=== PATIENT | male | born 1965 | race Caucasian/White ===

== ENCOUNTER 2016-12-22 15:14 | Emergency (ER) | payer MEDICAID, OTHER ==
[~2016-12-22] VITALS: Ht 170.2 cm; Wt 81.6 kg
[2016-12-22 15:30] VITALS: BP 126/87
== END 2016-12-22 17:16 | disposition left against medical advice (07) ==
LOC: ER 15:17
DX: M79.645 Pain in left finger(s) (principal); Z53.21 Procedure and treatment not carried out due to patient leaving prior to being seen by health care provider

== ENCOUNTER 2019-08-06 14:48 | Emergency (ER) | payer MEDICAID ==
[~2019-08-06] VITALS: Ht 170.2 cm; Wt 81.6 kg
[2019-08-06 19:29] VITALS: BP 128/95
[2019-08-06] MEDS ORDERED: IBUPROFEN 800 MG TAB PO ONE (20:00)
== END 2019-08-06 20:18 | disposition home or self-care (01) ==
LOC: ER 14:48
DX: L03.112 Cellulitis of left axilla (principal); R21 Rash and other nonspecific skin eruption

== ENCOUNTER 2020-11-18 10:12 | Inpatient (IN) | payer MEDICAID ==
[~2020-11-18] VITALS: Ht 170.2 cm; Wt 92.9 kg
[2020-11-18] MEDS ORDERED: ASPirin 81 mg TAB PO ONE (10:30)
[2020-11-18 10:54] LABS: Basophils # (auto) 0 10 ^3/uL (0-0.2); Basophils % (auto) 0.5 % (0.0-2.0); Eosinophils # (auto) 0.1 10 ^3/uL (0-0.8); Hematocrit 43.6 % (41.0-53.0); Hemoglobin 15.1 g/dL (13.5-17.5); Lymphocytes # (auto) 1.7 10 ^3/uL (0.4-5.4); Mean Corpuscular Hemoglobin 29.4 pg (28.0-32.0); Mean Corpuscular Hgb Conc. 34.7 g/dL (32.0-36.0); Mean Corpuscular Volume 84.8 fL (80.0-100.0); Monocytes # (auto) 0.6 10 ^3/uL (0-1.3); Neutrophils # (auto) 5.3 10 ^3/uL (1.6-8.6); Neutrophils % (auto) 68.5 % (37.0-80.0); Nucleated Red Blood Cells % 0.1 %; Platelet Count (auto) 178 10^3/uL (140-450); Red Blood Cells 5.13 10^6/uL (4.5-5.90); Red Cell Distribution Width 13.3 % (11.8-14.3); White Blood Cell 7.8 10^3/uL (4.4-10.8)
[2020-11-18 11:17] LABS: Amphetamine Screen, Urine NEGATIVE (NEGATIVE); Barbiturate Scree,Urine NEGATIVE (NEGATIVE); Benzodiazephine Screen, Urine NEGATIVE (NEGATIVE); Cannabinoid Screen, Urine POSITIVE (NEGATIVE); Cocaine Screen, Urine NEGATIVE (NEGATIVE); Opiate Scree,Urine NEGATIVE (NEGATIVE)
[2020-11-18 11:21] LABS: Albumin 3.8 g/dL (3.4-5.0); Anion Gap 5 (5-15); Blood Urea Nitrogen 12 mg/dL (7-18); Calcium 8.6 mg/dL (8.5-10.1); Carbon Dioxide 25 mmol/L (21-32); Chloride 109 mmol/L (98-107); Glucose 91 mg/dL (74-106); Magnesium 2.2 mg/dL (1.6-2.6); Sodium 139 mmol/L (136-145)
[2020-11-18 11:24] LABS: Phencyclidine Screen, Urine NEGATIVE (NEGATIVE)
[2020-11-18 11:29] LABS: Alanine Aminotransferase 27 U/L (16-61); Alkaline Phosphatase 85 U/L (45-117); Aspartate Aminotransferase 15 U/L (15-37); BUN/Creatinine Ratio 17.1; Bilirubin, Total 0.5 mg/dL (0.2-1.0); GFR African American 152 mL/min; GFR Non-African American 125 mL/min; Total Protein 7.3 g/dL (6.4-8.2)
[2020-11-18] MEDS ORDERED: MORPHINE SULF INJ 2 MG/ML SYRINGE 1ML IV PRN ×2 (12:30)
[2020-11-18] MEDS ORDERED: ACETAMINOPHEN 325 MG TAB PO PRN (12:30)
[2020-11-18] MEDS ORDERED: ONDANSETRON HCL 4 MG/2 ML VIAL IV PRN (12:30)
[2020-11-18] MEDS ORDERED: NITROGLYCERIN 0.4 MG SL TAB SL PRN (12:30)
[2020-11-18] MEDS ORDERED: HYDROcodone-ACET 5/325MG TAB PO PRN (12:30)
[2020-11-18] MEDS: ENOXAPARIN SOD 100 MG/1 ML SYRINGE SC SCH ×2 (14:15→21:57)
[2020-11-18 22:00] VITALS: BP 123/71
[2020-11-18 23:44] VITALS: BP 123/71
[2020-11-19 05:00] VITALS: BP 98/63
[2020-11-19 06:27] LABS: Basophils # (auto) 0 10 ^3/uL (0-0.2); Basophils % (auto) 0.3 % (0.0-2.0); Eosinophils # (auto) 0.2 10 ^3/uL (0-0.8); Eosinophils % (auto) 2.8 % (0.0-7.0); Hematocrit 43.4 % (41.0-53.0); Hemoglobin 15.3 g/dL (13.5-17.5); Lymphocytes # (auto) 2.1 10 ^3/uL (0.4-5.4); Lymphocytes % (auto) 38.7 % (10.0-50.0); Mean Corpuscular Hemoglobin 29.9 pg (28.0-32.0); Mean Corpuscular Hgb Conc. 35.2 g/dL (32.0-36.0); Monocytes # (auto) 0.4 10 ^3/uL (0-1.3); Monocytes % (auto) 8.2 % (0.0-12.0); Neutrophils # (auto) 2.7 10 ^3/uL (1.6-8.6); Nucleated Red Blood Cells % 0.1 %; Platelet Count (auto) 169 10^3/uL (140-450); Red Blood Cells 5.11 10^6/uL (4.5-5.90); Red Cell Distribution Width 13.2 % (11.8-14.3); White Blood Cell 5.4 10^3/uL (4.4-10.8)
[2020-11-19 06:46] LABS: Alanine Aminotransferase 24 U/L (16-61); Albumin 3.5 g/dL (3.4-5.0); Anion Gap 5 (5-15); Aspartate Aminotransferase 13 U/L (15-37); BUN/Creatinine Ratio 16.5; Blood Urea Nitrogen 13 mg/dL (7-18); Calcium 8.6 mg/dL (8.5-10.1); Carbon Dioxide 26 mmol/L (21-32); Chloride 108 mmol/L (98-107); GFR African American 132 mL/min; GFR Non-African American 109 mL/min; Glucose 95 mg/dL (74-106); Potassium 4.1 mmol/L (3.5-5.1); Sodium 139 mmol/L (136-145)
[2020-11-19 06:51] LABS: Alkaline Phosphatase 82 U/L (45-117); Bilirubin, Total 0.4 mg/dL (0.2-1.0); INR 0.99 (0.9-1.15); Partial Thromboplastin Time 30.5 sec (23.0-31.2); Total Protein 6.8 g/dL (6.4-8.2)
[2020-11-19 06:52] LABS: Urine Bacteria NONE SEEN /hpf (None Seen); Urine Blood Negative /uL (Negative); Urine Mucus FEW (None Seen); Urine Specific Gravity 1.021 (1.001-1.035); Urine WBC 1 /hpf (0 - 3)
[2020-11-19] MEDS ORDERED: LIDOCAINE 2%HCL (LOCAL ANESTH.) INJ 20ML MDV ONE (07:37)
[2020-11-19] MEDS ORDERED: IODIXANOL 320MG/ML 100ML BTL IV ONE ×2 (07:37→08:57)
[2020-11-19] MEDS ORDERED: HEPARIN SODIUM (PORCINE) 5000 UNITS/ML 1ML VIAL ONE (08:48)
[2020-11-19] MEDS ORDERED: ANGIOMAX 250 MG VIAL IV ONE (08:48)
[2020-11-19] MEDS ORDERED: SODIUM CHL 0.9% 0 ML ONE (08:49)
[2020-11-19] MEDS ORDERED: fentaNYL CITRATE 100 MCG/2 ML VL ONE (08:49)
[2020-11-19] MEDS ORDERED: VERAPAMIL 2.5MG/ML INJ 2ML VIAL IV ONE (08:49)
[2020-11-19] MEDS ORDERED: MIDAZOLAM HCL 1MG/1ML-2 ML VIAL ONE (08:49)
[2020-11-19 09:00] VITALS: BP 95/58
[2020-11-19] MEDS ORDERED: ENOXAPARIN SOD 40 MG/0.4 ML SYRINGE SC SCH (10:00)
[2020-11-19] MEDS ORDERED: ATORVASTATIN 20 MG TAB PO SCH (10:00)
[2020-11-19] MEDS ORDERED: SODIUM CHLORIDE 0.9% 1,000 ML IV SCH (10:00)
[2020-11-19] MEDS: ENOXAPARIN SOD 100 MG/1 ML SYRINGE SC SCH (10:00)
[2020-11-19] MEDS ORDERED: ASPirin 81 mg TAB PO SCH (10:00)
[2020-11-19 13:55] VITALS: BP 107/74
== END 2020-11-19 14:20 | disposition home or self-care (01) | DRG 191 ==
LOC: ER 10:12 → TELE 12:30 → TELE-EAST 21:44
PROVIDERS: ADMIT Internal Medicine; ATTEND Internal Medicine
PROC: 4A023N7 Measurement of Cardiac Sampling and Pressure, Left Heart, Percutaneous Approach (ICD-10-PCS; principal; 2020-11-19)
PROC: B211YZZ Fluoroscopy of Multiple Coronary Arteries using Other Contrast (ICD-10-PCS; 2020-11-19)
DX: I24.9 Acute ischemic heart disease, unspecified (principal); F10.20 Alcohol dependence, uncomplicated; F12.90 Cannabis use, unspecified, uncomplicated; I10 Essential (primary) hypertension; J45.909 Unspecified asthma, uncomplicated; R42 Dizziness and giddiness; Z20.822 Contact with and (suspected) exposure to COVID-19; Z72.0 Tobacco use
CPT/HCPCS: 36415; 71045; 80053; 80307; 80320; 81001; 83735; 84484; 85025; 85610; 85730; 86850; 86900; 86901; 87426; 93005; 93306; 93458; 99152; G0378; J2250; Q9967

== ENCOUNTER 2021-10-20 07:18 | Emergency (ER) | payer MEDICAID ==
[~2021-10-20] VITALS: Ht 170.2 cm; Wt 86.2 kg
[2021-10-20] MEDS ORDERED: ACE3T PO (10:43)
[2021-10-20] MEDS ORDERED: KETOROLAC TROMETH 60MG/2ML VIAL IM ONE (10:45)
[2021-10-20 10:48] VITALS: BP 141/84
== END 2021-10-20 11:44 | disposition home or self-care (01) ==
LOC: ER 07:24
DX: S46.911A Strain of unspecified muscle, fascia and tendon at shoulder and upper arm level, right arm, initial encounter (principal); J45.909 Unspecified asthma, uncomplicated; F12.10 Cannabis abuse, uncomplicated; Z87.891 Personal history of nicotine dependence; X50.0XXA Overexertion from strenuous movement or load, initial encounter; Y93.89 Activity, other specified; Y92.89 Other specified places as the place of occurrence of the external cause; Y99.8 Other external cause status
CPT/HCPCS: 73030; 96372; 99283; J1885

== ENCOUNTER 2022-08-22 10:35 | Emergency (ER) | payer MEDICAID ==
[~2022-08-22] VITALS: Ht 170.2 cm; Wt 90.6 kg
[~2022-08-22 10:35] MED LIST: ACE3T PO
[2022-08-22 11:26] LABS: Basophils # (auto) 0 10 ^3/uL (0-0.2); Basophils % (auto) 0.7 % (0.0-2.0); Eosinophils # (auto) 0.1 10 ^3/uL (0-0.8); Eosinophils % (auto) 1.8 % (0.0-7.0); Hematocrit 45.7 % (41.0-53.0); Hemoglobin 15.3 g/dL (13.5-17.5); Lymphocytes # (auto) 2.1 10 ^3/uL (0.4-5.4); Lymphocytes % (auto) 32.1 % (10.0-50.0); Mean Corpuscular Hemoglobin 28.9 pg (28.0-32.0); Mean Corpuscular Hgb Conc. 33.4 g/dL (32.0-36.0); Mean Corpuscular Volume 86.5 fL (80.0-100.0); Monocytes # (auto) 0.4 10 ^3/uL (0-1.3); Monocytes % (auto) 6.9 % (0.0-12.0); Neutrophils # (auto) 3.8 10 ^3/uL (1.6-8.6); Neutrophils % (auto) 58.5 % (37.0-80.0); Nucleated Red Blood Cells % 0.1 %; Red Blood Cells 5.28 10^6/uL (4.5-5.90); Red Cell Distribution Width 12.4 % (11.8-14.3); White Blood Cell 6.4 10^3/uL (4.4-10.8)
[2022-08-22 11:40] LABS: INR 0.97 (0.9-1.15); Partial Thromboplastin Time 29.1 sec (24.6-33.4)
[2022-08-22 11:55] LABS: Calcium 8.9 mg/dL (8.5-10.1); Potassium 4.2 mmol/L (3.5-5.1)
[2022-08-22 12:01] LABS: Albumin 3.9 g/dL (3.4-5.0); BUN/Creatinine Ratio 12.6; Bilirubin, Total 0.4 mg/dL (0.2-1.0); Total Protein 7.3 g/dL (6.4-8.2)
[2022-08-22] MEDS ORDERED: HYDR2.5C39 TOP (14:50)
[2022-08-22] MEDS ORDERED: PANT40TA2 PO (14:50)
[2022-08-22 14:55] LABS: Urine Bacteria MANY /hpf (None Seen); Urine Blood Negative /uL (Negative); Urine Hyaline Cast FEW /lpf (0 - 2); Urine Mucus FEW (None Seen); Urine Specific Gravity 1.025 (1.001-1.035); Urine Sperm PRESENT /hpf (None Seen); Urine WBC 3 /hpf (0 - 3)
[2022-08-22 15:41] VITALS: BP 129/80
== END 2022-08-22 15:42 | disposition home or self-care (01) ==
LOC: ER 10:37
DX: K64.9 Unspecified hemorrhoids (principal)
CPT/HCPCS: 36415; 74176; 80053; 81001; 84484; 85025; 85610; 85730

== ENCOUNTER 2023-01-07 14:26 | Emergency (ER) | payer MEDICAID ==
[~2023-01-07] VITALS: Ht 170.2 cm; Wt 92.0 kg
[~2023-01-07 14:26] MED LIST changes: +HYDR2.5C39 TOP; +PANT40TA2 PO
[2023-01-07 14:50] LABS: Basophils # (auto) 0.1 10 ^3/uL (0-0.2); Basophils % (auto) 0.7 % (0.0-2.0); Eosinophils # (auto) 0.2 10 ^3/uL (0-0.8); Eosinophils % (auto) 2.6 % (0.0-7.0); Hematocrit 45.6 % (41.0-53.0); Hemoglobin 15.3 g/dL (13.5-17.5); Lymphocytes # (auto) 2.4 10 ^3/uL (0.4-5.4); Lymphocytes % (auto) 32.1 % (10.0-50.0); Mean Corpuscular Hemoglobin 28.5 pg (28.0-32.0); Mean Corpuscular Hgb Conc. 33.5 g/dL (32.0-36.0); Mean Corpuscular Volume 85.3 fL (80.0-100.0); Monocytes # (auto) 0.6 10 ^3/uL (0-1.3); Monocytes % (auto) 7.7 % (0.0-12.0); Neutrophils # (auto) 4.2 10 ^3/uL (1.6-8.6); Neutrophils % (auto) 56.9 % (37.0-80.0); Nucleated Red Blood Cells % 0.1 %; Red Blood Cells 5.35 10^6/uL (4.5-5.90); Red Cell Distribution Width 13.5 % (11.8-14.3); White Blood Cell 7.4 10^3/uL (4.4-10.8)
[2023-01-07 15:11] LABS: Albumin 3.9 g/dL (3.4-5.0); Calcium 8.8 mg/dL (8.5-10.1); Potassium 4.3 mmol/L (3.5-5.1)
[2023-01-07 15:14] LABS: BUN/Creatinine Ratio 18.6 (10.0-20.0); Bilirubin, Total 0.4 mg/dL (0.2-1.0); Total Protein 7.1 g/dL (6.4-8.2)
[2023-01-07] MEDS ORDERED: ASPirin 81 mg TAB PO ONE (15:15)
[2023-01-07 15:48] LABS: Urine Bacteria NONE SEEN /hpf (None Seen); Urine Blood Negative /uL (Negative); Urine Specific Gravity 1.023 (1.001-1.035); Urine WBC <1 /hpf (0 - 3)
[2023-01-07 15:51] LABS: Alcohol, Urine < 3.0 mg/dL (0-10); Amphetamine Screen, Urine NEGATIVE (NEGATIVE); Barbiturate Scree,Urine NEGATIVE (NEGATIVE); Benzodiazephine Screen, Urine NEGATIVE (NEGATIVE); Cannabinoid Screen, Urine POSITIVE (NEGATIVE); Cocaine Screen, Urine NEGATIVE (NEGATIVE); Opiate Scree,Urine NEGATIVE (NEGATIVE); Phencyclidine Screen, Urine NEGATIVE (NEGATIVE)
[2023-01-07 16:28] VITALS: BP 135/94; PULSE 78; RESP 17; TEMP 98.1; O2SAT 96
== END 2023-01-07 16:31 | disposition home or self-care (01) ==
LOC: ER 14:26
DX: R07.89 Other chest pain (principal); J45.909 Unspecified asthma, uncomplicated; E78.5 Hyperlipidemia, unspecified; F10.90 Alcohol use, unspecified, uncomplicated; F12.90 Cannabis use, unspecified, uncomplicated; F15.90 Other stimulant use, unspecified, uncomplicated; Z90.89 Acquired absence of other organs; Z98.890 Other specified postprocedural states; Z87.891 Personal history of nicotine dependence; Z79.899 Other long term (current) drug therapy
CPT/HCPCS: 36415; 71046; 80053; 80307; 81001; 84484; 85025; 85379; 93005

== ENCOUNTER 2023-04-30 11:14 | Inpatient (IN) | payer MEDICAID ==
[~2023-04-30] VITALS: Ht 170.2 cm; Wt 102.3 kg
[2023-04-30 12:20] LABS: Basophils # (auto) 0 10 ^3/uL (0-0.2); Basophils % (auto) 0.6 % (0.0-2.0); Eosinophils # (auto) 0.1 10 ^3/uL (0-0.8); Eosinophils % (auto) 1.9 % (0.0-7.0); Hematocrit 45.9 % (41.0-53.0); Hemoglobin 15.4 g/dL (13.5-17.5); Lymphocytes % (auto) 31.5 % (10.0-50.0); Mean Corpuscular Hemoglobin 29.3 pg (28.0-32.0); Mean Corpuscular Hgb Conc. 33.6 g/dL (32.0-36.0); Mean Corpuscular Volume 87.2 fL (80.0-100.0); Monocytes # (auto) 0.6 10 ^3/uL (0-1.3); Monocytes % (auto) 8.6 % (0.0-12.0); Neutrophils # (auto) 3.7 10 ^3/uL (1.6-8.6); Neutrophils % (auto) 57.4 % (37.0-80.0); Red Blood Cells 5.27 10^6/uL (4.5-5.90); Red Cell Distribution Width 12.2 % (11.8-14.3); White Blood Cell 6.4 10^3/uL (4.4-10.8)
[2023-04-30 12:37] LABS: Alanine Aminotransferase 42 U/L (7-40); Albumin 4.4 g/dL (3.2-4.8); Alkaline Phosphatase 87 U/L (46-116); Anion Gap 6 (5-15); Aspartate Aminotransferase 22 U/L (13-40); BUN/Creatinine Ratio 10.8 (10.0-20.0); Blood Urea Nitrogen 12 mg/dL (9-23); Calcium 9.1 mg/dL (8.7-10.4); Carbon Dioxide 27 mmol/L (20-30); Chloride 105 mmol/L (98-107); Glucose 102 mg/dL (74-106); Potassium 4.4 mmol/L (3.5-5.1); Sodium 138 mmol/L (136-145)
[2023-04-30 12:38] LABS: Bilirubin, Total 0.5 mg/dL (0.2-1.0)
[2023-04-30 12:54] LABS: Urine Bacteria NONE SEEN /hpf (None Seen); Urine Blood Negative /uL (Negative); Urine Clarity Clear (Clear); Urine Color Yellow (Yellow); Urine Mucus FEW (None Seen); Urine Protein, UAD Negative (Negative); Urine Specific Gravity 1.027 (1.001-1.035); Urine Urobilinogen Normal (Negative); Urine WBC 2 /hpf (0 - 3); Urine pH 5.5 (5.0-8.0)
[2023-04-30] MEDS ORDERED: SODIUM CHLORIDE 0.9% 1,000 ML IVB ONE (13:15)
[2023-04-30] MEDS ORDERED: metroNIDAZOLE 500MG/100ML 100 ML IV ONE (13:15)
[2023-04-30] MEDS ORDERED: ONDANSETRON HCL 4 MG/2 ML VIAL IV ONE (13:15)
[2023-04-30] MEDS ORDERED: MORPHINE SULFATE 4 MG/ML SYR/VIAL IV ONE (13:15)
[2023-04-30] MEDS ORDERED: SODIUM CHLORIDE 0.9% 1,000 ML IV ONE (14:45)
[2023-04-30] MEDS ORDERED: KETOROLAC TROMETH 30 MG/ML 1ML VIAL IV ONE (14:45)
[2023-04-30] MEDS ORDERED: PANTOPRAZOLE 40 MG/10 ML VIAL INJ IV ONE (14:45)
[2023-04-30] MEDS ORDERED: ALBUTEROL MEDNEB 2.5 mg/3ml NEB NEB PRN (15:00)
[2023-04-30 15:54] VITALS: BP 114/69; PULSE 68; RESP 14; TEMP 98; O2SAT 94
[2023-04-30 18:30] VITALS: PULSE 61; RESP 19; O2SAT 96
[2023-04-30] MEDS: SODIUM CHLORIDE 0.9% 1,000 ML IV SCH ×2 (18:40→23:13)
[2023-04-30 19:20] VITALS: PULSE 61; RESP 17; O2SAT 96
[2023-04-30] MEDS: metroNIDAZOLE 500MG/100ML 100 ML IV SCH (22:10)
[2023-04-30] MEDS: HYDROcodone-ACET 5/325MG TAB PO PRN (23:47)
[2023-05-01] VITALS (13 sets, daily range): BP systolic 102–129; BP diastolic 58–88; PULSE 50–72; RESP 17–20; TEMP 36.6; O2SAT 93–98
[2023-05-01] MEDS ORDERED: ALBU108A5 INH (00:09)
[2023-05-01] MEDS: metroNIDAZOLE 500MG/100ML 100 ML IV SCH ×3 (05:23→19:48)
[2023-05-01] MEDS: ACETAMINOPHEN 325 MG TAB PO PRN ×2 (05:28→12:35)
[2023-05-01 06:23] LABS: Alanine Aminotransferase 32 U/L (7-40); Albumin 3.5 g/dL (3.2-4.8); Alkaline Phosphatase 69 U/L (46-116); Anion Gap 5 (5-15); Aspartate Aminotransferase 18 U/L (13-40); Blood Urea Nitrogen 11 mg/dL (9-23); Calcium 8.3 mg/dL (8.7-10.4); Carbon Dioxide 25 mmol/L (20-30); Chloride 111 mmol/L (98-107); Glucose 90 mg/dL (74-106); Lipase 70 U/L (12-53); Potassium 4.1 mmol/L (3.5-5.1); Sodium 141 mmol/L (136-145)
[2023-05-01 06:24] LABS: Bilirubin, Total 0.3 mg/dL (0.2-1.0); Total Protein 5.6 g/dL (5.7-8.2)
[2023-05-01 06:32] LABS: Basophils # (auto) 0 10 ^3/uL (0-0.2); Basophils % (auto) 0.6 % (0.0-2.0); Eosinophils # (auto) 0.2 10 ^3/uL (0-0.8); Eosinophils % (auto) 3.7 % (0.0-7.0); Hematocrit 41.4 % (41.0-53.0); Hemoglobin 13.7 g/dL (13.5-17.5); Lymphocytes # (auto) 2.1 10 ^3/uL (0.4-5.4); Lymphocytes % (auto) 42.1 % (10.0-50.0); Mean Corpuscular Hemoglobin 28.9 pg (28.0-32.0); Mean Corpuscular Hgb Conc. 33.1 g/dL (32.0-36.0); Mean Corpuscular Volume 87.1 fL (80.0-100.0); Monocytes # (auto) 0.5 10 ^3/uL (0-1.3); Monocytes % (auto) 9.1 % (0.0-12.0); Neutrophils # (auto) 2.2 10 ^3/uL (1.6-8.6); Neutrophils % (auto) 44.5 % (37.0-80.0); Nucleated Red Blood Cells % 0.2 %; Red Blood Cells 4.75 10^6/uL (4.5-5.90); Red Cell Distribution Width 12.2 % (11.8-14.3)
[2023-05-01] MEDS: SODIUM CHLORIDE 0.9% 1,000 ML IV SCH ×2 (07:25→15:45)
[2023-05-01] MEDS: ENOXAPARIN SOD 40 MG/0.4 ML SYRINGE SC SCH (09:36)
[2023-05-01] MEDS: PANTOPRAZOLE 40 MG/10 ML VIAL INJ IV SCH (09:36)
[2023-05-01] MEDS: HYDROcodone-ACET 5/325MG TAB PO PRN ×3 (09:37→19:48)
[2023-05-02] VITALS (8 sets, daily range): BP systolic 94–121; BP diastolic 54–94; PULSE 55–75; RESP 16–19; TEMP 97.8–98.6; O2SAT 92–100
[2023-05-02] MEDS: SODIUM CHLORIDE 0.9% 1,000 ML IV SCH ×2 (00:05→09:08)
[2023-05-02] MEDS: HYDROcodone-ACET 5/325MG TAB PO PRN ×3 (01:06→15:37)
[2023-05-02] MEDS: metroNIDAZOLE 500MG/100ML 100 ML IV SCH ×2 (05:37→14:00)
[2023-05-02] MEDS: ENOXAPARIN SOD 40 MG/0.4 ML SYRINGE SC SCH (09:09)
[2023-05-02] MEDS: PANTOPRAZOLE 40 MG/10 ML VIAL INJ IV SCH (09:09)
[2023-05-02] MEDS ORDERED: METR-344 PO (14:17)
[2023-05-02] MEDS ORDERED: NAPR-746 PO (14:17)
== END 2023-05-02 17:30 | disposition home or self-care (01) | DRG 244 ==
LOC: ER 11:14 → OVERFLOW 14:39 → EAST 22:50
PROVIDERS: ADMIT Nurse Practitioner Family; ATTEND Nurse Practitioner Family
DX: K57.32 Diverticulitis of large intestine without perforation or abscess without bleeding (principal); E66.01 Morbid (severe) obesity due to excess calories; E78.5 Hyperlipidemia, unspecified; J45.909 Unspecified asthma, uncomplicated; H66.92 Otitis media, unspecified, left ear; F19.10 Other psychoactive substance abuse, uncomplicated; F15.90 Other stimulant use, unspecified, uncomplicated; Z82.3 Family history of stroke; Z82.49 Family history of ischemic heart disease and other diseases of the circulatory system; Z87.891 Personal history of nicotine dependence; Z68.35 Body mass index [BMI] 35.0-35.9, adult
CPT/HCPCS: 36415; 74176; 80053; 81001; 83690; 85025; 93005; 94640; 96365; 96375; C9113; G0378; J2405; J3490

== ENCOUNTER 2023-09-28 09:51 | Inpatient (IN) | payer MEDICAID ==
[~2023-09-28] VITALS: Ht 170.2 cm; Wt 98.0 kg
[~2023-09-28 09:51] MED LIST changes: +ALBU108A5 INH; +METR-344 PO; +NAPR-746 PO
[2023-09-28 11:19] LABS: Basophils # (auto) 0 10 ^3/uL (0-0.2); Basophils % (auto) 0.5 % (0.0-2.0); Eosinophils # (auto) 0.2 10 ^3/uL (0-0.8); Eosinophils % (auto) 2.5 % (0.0-7.0); Hemoglobin 16.2 g/dL (13.5-17.5); Lymphocytes # (auto) 2.4 10 ^3/uL (0.4-5.4); Lymphocytes % (auto) 39.3 % (10.0-50.0); Mean Corpuscular Hemoglobin 29.3 pg (28.0-32.0); Mean Corpuscular Hgb Conc. 33.8 g/dL (32.0-36.0); Mean Corpuscular Volume 86.7 fL (80.0-100.0); Monocytes # (auto) 0.6 10 ^3/uL (0-1.3); Monocytes % (auto) 9.6 % (0.0-12.0); Neutrophils # (auto) 2.9 10 ^3/uL (1.6-8.6); Neutrophils % (auto) 48.1 % (37.0-80.0); Nucleated Red Blood Cells % 0.1 %; Red Blood Cells 5.53 10^6/uL (4.5-5.90); Red Cell Distribution Width 12.4 % (11.8-14.3); White Blood Cell 6.1 10^3/uL (4.4-10.8)
[2023-09-28 11:29] LABS: Urine Bacteria None Seen /hpf (None Seen)
[2023-09-28] MEDS: BUDESONIDE (INHALATION) 0.5 MG/2 ML NEB NEB ONE (11:38)
[2023-09-28] MEDS: IPRATROPIUM BROM 0.5 MG/2.5ML INH SOL NEB ONE (11:38)
[2023-09-28] MEDS: ALBUTEROL SULF 2.5 MG/0.5ML(0.5%) NEB SOLN NEB ONE (11:38)
[2023-09-28] MEDS: HYDROcodone-ACET 10/325MG TAB PO ONE (11:41)
[2023-09-28] MEDS: SODIUM CHLORIDE 0.9% 1,000 ML IV ONE (11:41)
[2023-09-28 11:45] LABS: Partial Thromboplastin Time 29.8 SEC (24.5-34.5); Prothrombin Time 10.5 sec (9.3-11.8)
[2023-09-28 11:47] LABS: Alanine Aminotransferase 57 U/L (7-40); Albumin 4.3 g/dL (3.2-4.8); Alkaline Phosphatase 74 U/L (46-116); Anion Gap 6 (5-15); Aspartate Aminotransferase 27 U/L (13-40); BUN/Creatinine Ratio 18.4 (10.0-20.0); Bilirubin, Total 0.3 mg/dL (0.2-1.0); Blood Urea Nitrogen 16 mg/dL (9-23); Calcium 9.7 mg/dL (8.7-10.4); Carbon Dioxide 25 mmol/L (20-30); Chloride 108 mmol/L (98-107); Glucose 86 mg/dL (74-106); Lipase 62 U/L (12-53); Potassium 4.5 mmol/L (3.5-5.1); Sodium 139 mmol/L (136-145); Total Protein 6.9 g/dL (5.7-8.2)
[2023-09-28 12:31] LABS: Urine Blood Negative /uL (Negative); Urine Clarity Clear (Clear); Urine Color Light-Yellow (Yellow); Urine Protein, UAD Negative (Negative); Urine Urobilinogen Normal (Negative); Urine WBC <1 /hpf (0 - 3)
[2023-09-28] MEDS ORDERED: ONDANSETRON HCL 4 MG/2 ML VIAL IV PRN (15:30)
[2023-09-28 16:02] LABS: Triglycerides 258 mg/dL (< 150)
[2023-09-28 16:03] LABS: LDL Cholesterol 128 mg/dL (< 100)
[2023-09-28 16:04] LABS: Cholesterol 205 mg/dL (< 200); HDL Cholesterol 47 mg/dL (40-59)
[2023-09-28 17:30] LABS: Amphetamine Screen, Urine Neg (NEGATIVE); Barbiturate Scree,Urine Neg (NEGATIVE); Benzodiazephine Screen, Urine Neg (NEGATIVE); Cannabinoid Screen, Urine Neg (NEGATIVE); Cocaine Screen, Urine Neg (NEGATIVE); Opiate Scree,Urine Neg (NEGATIVE); Phencyclidine Screen, Urine Neg (NEGATIVE)
[2023-09-28] MEDS: SODIUM CHLORIDE 0.9% 1,000 ML IV SCH (20:13)
[2023-09-28] MEDS: KETOROLAC TROMETH 30 MG/ML 1ML VIAL IV SCH (20:13)
[2023-09-29] MEDS: HYDROcodone-ACET 5/325MG TAB PO PRN (01:59)
[2023-09-29 05:24] LABS: Alanine Aminotransferase 49 U/L (7-40); Alkaline Phosphatase 63 U/L (46-116); Anion Gap 4 (5-15); Aspartate Aminotransferase 26 U/L (13-40); BUN/Creatinine Ratio 15.1 (10.0-20.0); Blood Urea Nitrogen 16 mg/dL (9-23); Calcium 9.5 mg/dL (8.7-10.4); Carbon Dioxide 27 mmol/L (20-30); Chloride 108 mmol/L (98-107); Glucose 90 mg/dL (74-106); Potassium 4.6 mmol/L (3.5-5.1); Sodium 139 mmol/L (136-145)
[2023-09-29 05:25] LABS: Bilirubin, Total 0.4 mg/dL (0.2-1.0); Total Protein 6.4 g/dL (5.7-8.2)
[2023-09-29 05:36] LABS: Basophils # (auto) 0 10 ^3/uL (0-0.2); Basophils % (auto) 0.4 % (0.0-2.0); Eosinophils # (auto) 0.2 10 ^3/uL (0-0.8); Hematocrit 43.3 % (41.0-53.0); Hemoglobin 14.6 g/dL (13.5-17.5); Lymphocytes # (auto) 2.2 10 ^3/uL (0.4-5.4); Lymphocytes % (auto) 40.3 % (10.0-50.0); Mean Corpuscular Hemoglobin 29.2 pg (28.0-32.0); Mean Corpuscular Hgb Conc. 33.7 g/dL (32.0-36.0); Mean Corpuscular Volume 86.6 fL (80.0-100.0); Monocytes # (auto) 0.5 10 ^3/uL (0-1.3); Monocytes % (auto) 8.2 % (0.0-12.0); Neutrophils # (auto) 2.6 10 ^3/uL (1.6-8.6); Neutrophils % (auto) 48.1 % (37.0-80.0); Nucleated Red Blood Cells % 0.2 %; Red Cell Distribution Width 12.7 % (11.8-14.3); White Blood Cell 5.5 10^3/uL (4.4-10.8)
[2023-09-29] MEDS: ENOXAPARIN SOD 40 MG/0.4 ML SYRINGE SC SCH (08:33)
[2023-09-29] MEDS: metroNIDAZOLE 500MG/100ML 100 ML IV SCH (17:10)
[2023-09-29] MEDS: ALBUTEROL SULF 2.5 MG/0.5ML(0.5%) NEB SOLN NEB PRN (22:54)
[2023-09-29 23:26] VITALS: PULSE 63; RESP 20; O2SAT 96
[2023-09-30] VITALS (13 sets, daily range): BP systolic 101–131; BP diastolic 53–78; PULSE 58–105; RESP 18–24; TEMP 97.7–98.8; O2SAT 92–98
[2023-09-30 06:21] LABS: Basophils # (auto) 0 10 ^3/uL (0-0.2); Basophils % (auto) 0.5 % (0.0-2.0); Eosinophils # (auto) 0.2 10 ^3/uL (0-0.8); Eosinophils % (auto) 3.1 % (0.0-7.0); Hematocrit 41.5 % (41.0-53.0); Hemoglobin 14.1 g/dL (13.5-17.5); Lymphocytes # (auto) 1.8 10 ^3/uL (0.4-5.4); Lymphocytes % (auto) 34.2 % (10.0-50.0); Mean Corpuscular Hemoglobin 29.3 pg (28.0-32.0); Mean Corpuscular Volume 86.2 fL (80.0-100.0); Monocytes # (auto) 0.4 10 ^3/uL (0-1.3); Monocytes % (auto) 7.8 % (0.0-12.0); Neutrophils # (auto) 2.9 10 ^3/uL (1.6-8.6); Neutrophils % (auto) 54.4 % (37.0-80.0); Nucleated Red Blood Cells % 0.1 %; Red Blood Cells 4.82 10^6/uL (4.5-5.90); Red Cell Distribution Width 12.5 % (11.8-14.3); White Blood Cell 5.3 10^3/uL (4.4-10.8)
[2023-09-30 06:35] LABS: Alanine Aminotransferase 39 U/L (7-40); Alkaline Phosphatase 58 U/L (46-116); Anion Gap 5 (5-15); BUN/Creatinine Ratio 15.1 (10.0-20.0); Blood Urea Nitrogen 13 mg/dL (9-23); Calcium 8.9 mg/dL (8.5-10.1); Carbon Dioxide 26 mmol/L (20-30); Chloride 110 mmol/L (98-107); Glucose 86 mg/dL (74-106); Potassium 4.1 mmol/L (3.5-5.1); Sodium 141 mmol/L (136-145)
[2023-09-30 06:36] LABS: Albumin 3.6 g/dL (3.2-4.8); Aspartate Aminotransferase 24 U/L (13-40); Bilirubin, Total 0.5 mg/dL (0.2-1.0); Total Protein 5.6 g/dL (5.7-8.2)
[2023-09-30] MEDS: levoFLOXacin 500MG 100 ML IV SCH (09:18)
[2023-09-30 09:19] LABS: Hepatitis B Surface Antigen Negative (Negative)
[2023-09-30 09:36] LABS: Hepatitis C Antibody Negative (Negative)
[2023-09-30] MEDS ORDERED: CLIN1CAP70 PO (10:52)
[2023-09-30] MEDS ORDERED: CLOT-6 EX (10:52)
[2023-09-30] MEDS ORDERED: GABA-1250 PO (15:44)
[2023-09-30] MEDS: GABAPENTIN 300 MG CAP PO SCH (21:40)
[2023-09-30] MEDS: ATORVASTATIN 20 MG TAB PO SCH (21:40)
[2023-09-30] MEDS: ALBUTEROL SULF 2.5 MG/0.5ML(0.5%) NEB SOLN NEB PRN (22:45)
[2023-09-30] MEDS: IPRATROPIUM BROM 0.5 MG/2.5ML INH SOL NEB ONE (22:46)
[2023-10-01] VITALS (8 sets, daily range): BP systolic 102–126; BP diastolic 60–83; PULSE 52–65; RESP 18; TEMP 97.6–98.1; O2SAT 92–99
[2023-10-01 06:38] LABS: Basophils # (auto) 0 10 ^3/uL (0-0.2); Basophils % (auto) 0.3 % (0.0-2.0); Eosinophils # (auto) 0.2 10 ^3/uL (0-0.8); Eosinophils % (auto) 3.4 % (0.0-7.0); Hematocrit 41.6 % (41.0-53.0); Hemoglobin 14.1 g/dL (13.5-17.5); Lymphocytes # (auto) 1.6 10 ^3/uL (0.4-5.4); Lymphocytes % (auto) 28.9 % (10.0-50.0); Mean Corpuscular Hemoglobin 29.3 pg (28.0-32.0); Mean Corpuscular Hgb Conc. 33.9 g/dL (32.0-36.0); Mean Corpuscular Volume 86.4 fL (80.0-100.0); Monocytes # (auto) 0.4 10 ^3/uL (0-1.3); Monocytes % (auto) 7.6 % (0.0-12.0); Neutrophils # (auto) 3.2 10 ^3/uL (1.6-8.6); Neutrophils % (auto) 59.8 % (37.0-80.0); Red Blood Cells 4.81 10^6/uL (4.5-5.90); Red Cell Distribution Width 12.4 % (11.8-14.3); White Blood Cell 5.4 10^3/uL (4.4-10.8)
[2023-10-01 07:00] LABS: Alanine Aminotransferase 35 U/L (7-40); Albumin 3.6 g/dL (3.2-4.8); Alkaline Phosphatase 55 U/L (46-116); Anion Gap 8 (5-15); Aspartate Aminotransferase 21 U/L (13-40); BUN/Creatinine Ratio 11.1 (10.0-20.0); Bilirubin, Total 0.5 mg/dL (0.2-1.0); Blood Urea Nitrogen 10 mg/dL (9-23); Calcium 8.9 mg/dL (8.5-10.1); Carbon Dioxide 23 mmol/L (20-30); Chloride 111 mmol/L (98-107); Glucose 90 mg/dL (74-106); Potassium 4.4 mmol/L (3.5-5.1); Sodium 142 mmol/L (136-145)
[2023-10-01 07:01] LABS: Total Protein 5.5 g/dL (5.7-8.2)
[2023-10-01] MEDS ORDERED: MET500T PO (12:48)
[2023-10-01] MEDS ORDERED: LEVO750T40 PO (12:48)
== END 2023-10-01 14:45 | disposition home or self-care (01) | DRG 282 ==
LOC: ER 09:51 → OVERFLOW 15:23 → EAST 09-29 23:56
PROVIDERS: ADMIT Internal Medicine; ATTEND Internal Medicine
DX: K85.90 Acute pancreatitis without necrosis or infection, unspecified (principal); A08.39 Other viral enteritis; K40.20 Bilateral inguinal hernia, without obstruction or gangrene, not specified as recurrent; K42.9 Umbilical hernia without obstruction or gangrene; E78.5 Hyperlipidemia, unspecified; J44.9 Chronic obstructive pulmonary disease, unspecified; K57.30 Diverticulosis of large intestine without perforation or abscess without bleeding; Z87.891 Personal history of nicotine dependence; Z79.51 Long term (current) use of inhaled steroids; Z79.899 Other long term (current) drug therapy
CPT/HCPCS: 36415; 74176; 76705; 80053; 80061; 80307; 81001; 83036; 83605; 83690; 84484; 85025; 85610; 85730; 86803; 87040; 87340; 94640; 96360; G0378; J1885; J1956; J3490

== ENCOUNTER 2024-05-20 14:28 | Inpatient (IN) | payer MEDICAID ==
[~2024-05-20] VITALS: Ht 170.2 cm; Wt 98.9 kg
[~2024-05-20 14:28] MED LIST changes: +GABA-1250 PO; +LEVO750T40 PO; +MET500T PO
[2024-05-20 14:46] LABS: Basophils # (auto) 0.1 10 ^3/uL (0-0.2); Basophils % (auto) 0.9 % (0.0-2.0); Eosinophils # (auto) 0.1 10 ^3/uL (0-0.8); Eosinophils % (auto) 1.8 % (0.0-7.0); Hematocrit 45.8 % (41.0-53.0); Hemoglobin 15.7 g/dL (13.5-17.5); Lymphocytes # (auto) 1.6 10 ^3/uL (0.4-5.4); Lymphocytes % (auto) 21.2 % (10.0-50.0); Mean Corpuscular Hemoglobin 29.9 pg (28.0-32.0); Mean Corpuscular Hgb Conc. 34.2 g/dL (32.0-36.0); Mean Corpuscular Volume 87.4 fL (80.0-100.0); Monocytes # (auto) 0.7 10 ^3/uL (0-1.3); Monocytes % (auto) 8.9 % (0.0-12.0); Neutrophils % (auto) 67.2 % (37.0-80.0); Nucleated Red Blood Cells % 0.1 %; Platelet Count (auto) 195 10^3/uL (140-450); Red Blood Cells 5.25 10^6/uL (4.5-5.90); Red Cell Distribution Width 12.6 % (11.8-14.3); White Blood Cell 7.4 10^3/uL (4.4-10.8)
[2024-05-20 15:03] LABS: Albumin 4.5 g/dL (3.2-4.8); Alkaline Phosphatase 94 U/L (46-116); Anion Gap 7 (5-15); Aspartate Aminotransferase 25 U/L (13-40); BUN/Creatinine Ratio 18.2 (10.0-20.0); Bilirubin, Total 0.4 mg/dL (0.2-1.0); Blood Urea Nitrogen 18 mg/dL (9-23); Calcium 9.8 mg/dL (8.7-10.4); Carbon Dioxide 29 mmol/L (20-31); Chloride 107 mmol/L (98-107); Glucose 98 mg/dL (74-106); Potassium 4.2 mmol/L (3.5-5.1); Sodium 143 mmol/L (136-145); Total Protein 6.9 g/dL (5.7-8.2)
[2024-05-20 15:09] LABS: Alanine Aminotransferase 54 U/L (7-40)
--- NOTE | 2024-05-20 15:11 | DVH ---
CHEST RADIOGRAPH Indication: CP Technique: Single frontal view of the chest was obtained COMPARISON: CHEST PORTABLE on DOS: 11/18/20 FINDINGS: Lines and Tubes: None Lungs: Clear Pleura: No effusion. No pneumothorax. Cardiomediastinal contours: Unremarkable Bones: Unremarkable IMPRESSION: 1. No acute disease.
--- NOTE | 2024-05-20 16:03 | ED.PDOC ---
SOB-HPI HPI Comments A 58 year old male presents to the ED with a chief complaint of shortness of breath onset today around 02:30. Patient states he was sleeping, woke up experiencing shortness of breath, cough, chest pain and describes as a burning sensation in his lungs. Patient has a past medical history of Asthma, HDL does use his albuterol inhaler but did not notice an improvement. Patient seen by PCP, had abn lung sounds, has a history of Pneumonia and was told to come to ED. No other symptoms or modifying factors present at this time. Chief Complaint: Chest Pain Time Seen by MD: 15:48 Primary Care Provider: DR DUNLAP Reviewed notes: Medications, Allergies Information Source: Patient Mode of Arrival: Ambulatory Severity: Moderate Timing: Hours Duration: Since onset Context: At Rest PE Risk Factors: None History of: Asthma Prehospital treatment: None Associated Signs and Symptoms: Cough, Sore Throat, Chest Pain Quality: Burning Radiation: No Radiation If cough with SOB: Non-Productive Past Medical History PAST MEDICAL HISTORY: Asthma, High Lipids Surgical History: Tonsillectomy Family History Family History: Reviewed,noncontributory to illness, Family hx of heart annie, Family hx of stroke Social History Smoker: Quit Greater Than 1 Year Alcohol: Heavy Drugs: Marijuana, Methamphetamine Lives In: Home Constitutional: denies: chills, diaphoresis, fatigue, fever, malaise, sweats, weakness, others EENTM: reports: throat pain; denies: blurred vision, double vision, ear bleeding, ear discharge, ear drainage, ear pain, ear ringing, eye pain, eye redness, hearing loss, mouth pain, mouth swelling, nasal discharge, nose bleeding, nose congestion, nose pain, photophobia, tearing, throat swelling, voice changes, others Respiratory: reports: cough, shortness of breath; denies: hemoptysis, orthopnea, SOB at rest, SOB with excertion, stridor, wheezing, others Cardiovascular: reports: chest pain; denies: dizzy spells, diaphoresis, Dyspnea on exertion, edema, irregular heart beat, left arm pain, lightheadedness, palpitations, PND, syncope, others Gastrointestinal: denies: abdomen distended, abdominal pain, blood streaked bowels, constipated, diarrhea, dysphagia, difficulty swallowing, hematemesis, melena, nausea, poor appetite, poor fluid intake, rectal bleeding, rectal pain, vomiting, others Genitourinary: denies: burning, dysuria, flank pain, frequency, hematuria, incontinence, penile discharge, penile sore, pain, testicle pain, testicle swelling, urgency, others Neurological: denies: dizziness, fainting, headache, left sided numbness, left sided weakness, numbness, paresthesia, pre-existing deficit, right sided numbness, right sided weakness, seizure, speech problems, tingling, tremors, weakness, others Musculoskeletal: denies: back pain, gout, joint pain, joint swelling, muscle pain, muscle stiffness, neck pain, others Integumetry: denies: bruises, change in color, change in hair/nails, dryness, laceration, lesions, lumps, rash, wounds, others Allergic/Immunocompromised: denies: Difficulty Healing, Frequent Infections, H kareen, Itching, others Hematologic/Lymphatic: denies: anemia, blood clots, easy bleeding, easy bruising, swollen glands, others Endocrine: denies: excessive hunger, excessive sweating, excessive thirst, excessive urination, flushing, intolerance to cold, intolerance to heat, unexplained weight gain, unexplained weight loss, others Psychiatric: denies: anxiety, bipolar disorder, depression, hopeless, panic disorder, schizophrenia, sleepless, suicidal, others All Other Systems: Reviewed and Negative Physical Exam General Appearance: Mild Distress HEENT: Other (Pupils symmetric, moist mucous membranes, no facial asymmetry) Neck: Full Range of Motion, Normal Inspection Respiratory: No Accessory Muscle Use, Respiratory Distress (Mild), Rhonchi, Wheezing Cardiovascular: No Edema, No JVD, Regular Rate/Rhythm Breast Exam: Deferred Gastrointestinal: Non Tender, Soft Genitalia: Deferred Pelvic: Deferred Rectal: Deferred Extremities: Normal inspection, Normal range of motion, Non-tender, No pedal edema Neurologic: Alert, No Motor Deficits, Normal Affect, Normal Mood, No Sensory Deficits Cerebellar Function: NOT DONE Reflexes: NOT DONE Skin: Dry, Normal Color, Warm Lymphatic: NOT DONE EKG EKG : Comments Sinus rhythm, rate 73, normal intervals, normal axis, normal QRS, nonspecific T changes. Was a procedure done? Was a procedure done?: No Differential Dx Differential Diagnosis: Asthma, Bronchitis, CHF, COPD, Myocardial infarction, Panic Attack, Pneumonia, Pulmonary Embolism, Respiratory Distress, URI X-Ray, Labs, Meds, VS Vital Signs Date Time Temp Pulse Resp B/P (MAP) Pulse Ox O2 Delivery O2 Flow Rate FiO2 05/20/24 18:39 71 18 147/87 05/20/24 18:38 70 18 147/87 (107) 94 05/20/24 16:36 79 18 145/90 05/20/24 16:18 74 19 96 Room Air 05/20/24 16:18 98.7 76 17 145/90 (108) 96 98.7 05/20/24 16:06 20 96 Room Air* 0 21 05/20/24 14:33 99.5 82 18 132/86 (101) 94 05/20/24 14:28 73 Lab Test 05/20/24 17:18 05/20/24 16:40 05/20/24 16:38 05/20/24 15:18 Range/Units Troponin I High Sensitivity < 3 L < 3 L </=54 ng/L Urine Color Light-yellow Yellow Urine Clarity Clear Clear Urine pH 6.0 5.0-9.0 Urine Specific [place] 1.022 1.001-1.035 Urine Protein Negative Negative Urine Ketones Negative Negative Urine Blood Negative Negative /uL Urine Nitrite Negative Negative Urine Bilirubin Negative Negative Urine Urobilinogen Normal Negative mg/dL Urine Leukocyte Esterase Negative Negative /uL Urine RBC 1 0 - 3 /hpf Urine WBC 2 0 - 3 /hpf Urine Squamous Epithelial Cells None seen <5 /hpf Urine Bacteria None seen None Seen /hpf Urine Glucose Normal Normal mg/dL Influenza Type A Antigen Negative Negative Influenza Type B Antigen Negative Negative SARS-CoV-2 Antigen (Rapid) Negative NEGATIVE Test 05/20/24 14:35 Range/Units White Blood Count 7.4 4.4-10.8 10^3/uL Red Blood Count 5.25 4.5-5.90 10^6/uL Hemoglobin 15.7 13.5-17.5 g/dL Hematocrit 45.8 41.0-53.0 % Mean Corpuscular Volume 87.4 80.0-100.0 fL Mean Corpuscular Hemoglobin 29.9 28.0-32.0 pg Mean Corpuscular Hemoglobin Concent 34.2 32.0-36.0 g/dL Red Cell Distribution Width 12.6 11.8-14.3 % Platelet Count 195 140-450 10^3/uL Mean Platelet Volume 7.7 6.9-10.8 fL Neutrophils (%) (Auto) 67.2 37.0-80.0 % Lymphocytes (%) (Auto) 21.2 10.0-50.0 % Monocytes (%) (Auto) 8.9 0.0-12.0 % Eosinophils (%) (Auto) 1.8 0.0-7.0 % Basophils (%) (Auto) 0.9 0.0-2.0 % Neutrophils # (Auto) 5.0 1.6-8.6 10 ^3/uL Lymphocytes # (Auto) 1.6 0.4-5.4 10 ^3/uL Monocytes # (Auto) 0.7 0-1.3 10 ^3/uL Eosinophils # (Auto) 0.1 0-0.8 10 ^3/uL Basophils # (Auto) 0.1 0-0.2 10 ^3/uL Nucleated Red Blood Cells 0.1 % Sodium Level 143 136-145 mmol/L Potassium Level 4.2 3.5-5.1 mmol/L Chloride Level 107 98-107 mmol/L Carbon Dioxide Level 29 20-31 mmol/L Anion Gap 7 5-15 Blood Urea Nitrogen 18 9-23 mg/dL Creatinine 0.99 0.700-1.30 mg/dL Glomerular Filtration Rate Calc 89 >90 mL/min BUN/Creatinine Ratio 18.2 10.0-20.0 Serum Glucose 98 74-106 mg/dL Calcium Level 9.8 8.7-10.4 mg/dL Total Bilirubin 0.4 0.2-1.0 mg/dL Aspartate Amino Transferase (AST) 25 13-40 U/L Alanine Aminotransferase (ALT) 54 H 7-40 U/L Alkaline Phosphatase 94 46-116 U/L Troponin I High Sensitivity < 3 L </=54 ng/L B-Type Natriuretic Peptide 12.42 0-100 pg/mL Total Protein 6.9 5.7-8.2 g/dL Albumin 4.5 3.2-4.8 g/dL Current Medications Medications (Trade) Dose Ordered Sig/Arnold Route Start Time Stop Time Status Last Admin Albuterol (Ventolin Medneb) 5 mg ONCE ONCE NEB 05/20/24 16:00 05/20/24 16:01 DC 05/20/24 16:06 Ipratropium [place] (Atrovent Medneb) 0.5 mg ONCE ONCE NEB 05/20/24 16:00 05/20/24 16:01 DC 05/20/24 16:06 Methylprednisolone Sodium Succinate (Solu Medrol) 125 mg ONCE ONCE IV 05/20/24 16:00 05/20/24 16:01 DC 05/20/24 16:34 Morphine Sulfate 4 mg ONCE ONCE IV 05/20/24 16:00 05/20/24 16:01 DC 05/20/24 16:36 Ondansetron HCl (Zofran) 4 mg ONCE ONCE IV 05/20/24 16:00 05/20/24 16:01 DC 05/20/24 16:35 PROCEDURE(s): CXRP - CHEST PORTABLE REASON: CP ORDER NUMBER(s): [id number], ACCESSION NUMBER(s): [id number] CHEST RADIOGRAPH Indication: CP Technique: Single frontal view of the chest was obtained COMPARISON: CHEST PORTABLE on DOS: 11/18/20 FINDINGS: Lines and Tubes: None Lungs: Clear Pleura: No effusion. No pneumothorax. Cardiomediastinal contours: Unremarkable Bones: Unremarkable IMPRESSION: 1. No acute disease. ATED BY: AUDREY HERNÁNDEZ MD DICTATED DATE/TIME: 05/20/24 1509 SIGNED BY: AUDREY HERNÁNDEZ MD SIGNED DATE/TIME: 05/20/24 1509 X-Ray, Labs, Meds, VS Comment 58-year-old male with a history of asthma and dyslipidemia referred by primary doctor for chest pain and difficulty breathing Vitals remarkable for oxygen saturation 94% on room air Exam remarkable for mild respiratory distress, bilateral inspiratory/expiratory wheezes and rhonchi Rhythm strip independently interpreted by me: Sinus rhythm, rate 43, no ectopy. Chest x-ray unremarkable CBC, CMP, BNP, troponin, UA, influenza and COVID tests remarkable Patient treated with the following in the ED: Albuterol 5 mg/Atrovent 0.5 mg nebulized, Solu-Medrol 125 mg IV, morphine 4 mg IV, Zofran 4 mg IV On re-evaluation, patient was still demonstrating wheezes and rhonchi. A 2nd breathing treatment was ordered. Plan is to admit the patient for respiratory support as needed. Time of 1ST Reevaluation: 16:18 Reevaluation 1ST: Unchanged Patient Education/Counseling: Diagnosis, Treatment, Prognosis Family Education/Counseling: No Family Present Additional Information HI Data VOL/Complexity Ordered tests: LAB, EKG, XY, PHA reviewed results: TROP, TROP, TROP, CBC, CMP, BNP, Influenza A/B, COVID Interpreted results: XY, EKG Discuss tx/ results: patient, medical personnel, Departure 1 Departure Time of Disposition: 19:03 Impression: Primary Impression: Acute bronchitis with asthma with acute exacerbation Disposition: ADMITTED INPATIENT Admit to: Tele Condition: Guarded Critical Care Note Critical Care Time?: No Stability Stability form required: No Heart Score Heart Score: Heart Score Response (Comments) Value History Slightly Suspicious 0 EKG Repolarization Disturb 1 Age 45-64 1 Risk Factors 1 or 2 risk factors 1 Troponin Normal limit 0 Total 3 I personally scribed for DAISHA DELANEY MD ([email or web address]) on 05/20/24 at 16:03. Electronically submitted by Yue Ellison ([email or web address]). I personally scribed for DAISHA DELANEY MD ([email or web address]) on 05/20/24 at 16:03. Electronically submitted by Yue Ellison ([email or web address]). I personally scribed for DAISHA DELANEY MD ([email or web address]) on 05/20/24 at 16:21. Electronically submitted by Yue Ellison ([email or web address]). I personally scribed for DAISHA DELANEY MD ([email or web address]) on 05/20/24 at 16:22. Electronically submitted by Yue Ellison ([email or web address]). DAISHA DELANEY MD May 20, 2024 16:03
[2024-05-20] MEDS: ALBUTEROL SULF 2.5 MG/0.5ML(0.5%) NEB SOLN NEB ONE ×2 (16:06→19:22)
[2024-05-20] MEDS: IPRATROPIUM BROM 0.5 MG/2.5ML INH SOL NEB ONE ×2 (16:06→19:22)
[2024-05-20] MEDS: methylPREDNISolone SOD SUCC 125 MG/2 ML VL IV ONE (16:34)
[2024-05-20] MEDS: ONDANSETRON HCL 4 MG/2 ML VIAL IV ONE (16:35)
[2024-05-20] MEDS: MORPHINE SULFATE 4 MG/ML SYR/VIAL IV ONE (16:36)
[2024-05-20 16:42] LABS: Urine Bacteria None Seen /hpf (None Seen)
[2024-05-20 16:52] LABS: Urine Blood Negative /uL (Negative); Urine Clarity Clear (Clear); Urine Color Light-Yellow (Yellow); Urine Protein, UAD Negative (Negative); Urine Specific Gravity 1.022 (1.001-1.035); Urine Urobilinogen Normal (Negative); Urine WBC 2 /hpf (0 - 3)
--- NOTE | 2024-05-20 17:26 | ECG ---
[facility] Test Date: 2024-05-20 Test Time: 14:26:44 Pat Name: JESUS MANUEL WHEATLEY Department: ER Room: 0288 Gender: M Extrusion Manager: GAYE : 1965 Requested By: ALONSO NEWTON Order Number: [id number] Reading MD: Puneet Thorne Measurements Intervals [place] Rate: 73 P: 67 NE: 167 QRS: 68 QRSD: 106 T: 67 QT: 387 QTc: 427 Interpretive Statements Sinus rhythm Consider left atrial enlargement Electronically Signed On 05-26-2024 12:22:40 PST by Puneet Thorne Please click the below link to view image of tracing.
[2024-05-20 17:40] LABS: COVID19 ANTIGEN SOFIA FIA NEGATIVE (NEGATIVE)
[2024-05-20 17:41] LABS: Rapid Influenza A Negative (Negative); Rapid Influenza B Negative (Negative)
[2024-05-20] MEDS ORDERED: ACETAMINOPHEN 325 MG TAB PO PRN (19:15)
[2024-05-20 19:56] VITALS: BP 147/87; PULSE 71; RESP 18; TEMP 98.7; O2SAT 96
[2024-05-20] MEDS ORDERED: NITROGLYCERIN 0.4 MG SL TAB SL PRN (20:45)
[2024-05-20] MEDS ORDERED: MORPHINE SULFATE INJ 2 MG/ml SYRG IV PRN (20:45)
--- NOTE | 2024-05-20 20:46 | DVHHP2 ---
History of Present Illness Reason for Visit: Acute bronchitis with asthma with acute exacerbation History of Present Illness The patient is a 58-year-old male with past medical history of asthma and hyperlipidemia who presented to [facility] ED with complaint of shortness of breaths. Patient reports symptoms progressively get worse with cough, chest pain described as burning sensation, getting worse that prompted this visit. Patient was seen and evaluated in the ED, laboratory data shows WBC 7.4, platelets 195, sodium 143, potassium 4.2, BUN 18, creatinine 0.99, glucose 98, AST 25, ALT 54, troponin 3, BNP 12.42, blood pressure 147/87, heart rate 72, temperature 98.7 F, O2 saturation 96% on oxygen. Patient was started on IV Solu-Medrol, given breathing treatment, please see medication orders section in the computer. On my assessment, patient denied chest pain, no headache, no dizziness, no diaphoresis, currently on oxygen, no diarrhea, no nausea, no vomiting, no fever, no chills. Patient was admitted for further evaluation and medical management. Past Medical History Asthma, High Lipids Past Surgical History Tonsillectomy Family History Reviewed, noncontributory to the management of this case. Past Social History The patient lives at home, drinks alcohol heavily, quit smoking greater than 1 year, uses marijuana and methamphetamine. Review of Systems Constitutional: No: Fever, Chills, Sweats, Weakness, Malaise, Other Eyes: No: Pain, Vision change, Conjunctivae inflammation, Eyelid inflammation, Other, Redness ENT: Throat pain; No: Ear pain, Ear discharge, Nose pain, Nose discharge, Nose congestion, Mouth pain, Mouth swelling, Throat swelling, Other Respiratory: Cough, Shortness of breath; No: Dry, SOB with excertion, Wheezing, Hemoptysis, Pleuritic Pain, Sputum, Wheezing, Other Cardiovascular: Chest Pain; No: Palpitations, Orthopnea, Paroxysmal Noc. Dyspnea, Edema, Lt Headedness, Other Gastrointestinal: No: Nausea, Vomiting, Abdominal Pain, Diarrhea, Constipation, Melena, Hematochezia, Other Genitourinary: No Dysuria, No Frequency, No Incontinence, No Hematuria, No Retention, No Other Musculoskeletal: No: other, neck pain, shoulder pain, arm pain, back pain, hand pain, leg pain, foot pain Skin: No: Rash, Lesions, Jaundice, Bruising, Other Neurological: No: Weakness, Numbness, Incoordination, Change in speech, Confusion, Seizures, Other Allergies: Coded Allergies: NO KNOWN ALLERGIES (Unverified , 07/04/10) Medications Current Medications Medications Dose Ordered Sig/Arnold Route Start Time Stop Time Status Last Admin Dose Admin Albuterol 2.5 mg Q4HPRN PRN NEB 05/20/24 19:15 Ipratropium [place] 0.5 mg Q4HPRN PRN NEB 05/20/24 19:15 Methylprednisolone Sodium Succinate 40 mg Q8HR IV 05/20/24 22:00 Famotidine 20 mg Q12HR IV 05/20/24 22:00 Sodium Chloride 10 ml Q8HR IV 05/20/24 22:00 Acetaminophen/ Hydrocodone Bitart 1 tab Q4HP PRN PO 05/20/24 19:15 Ondansetron HCl 4 mg Q4HP PRN IV 05/20/24 19:15 Docusate Sodium 100 mg BIDPRN PRN PO 05/20/24 19:15 Acetaminophen 650 mg Q6HP PRN PO 05/20/24 19:15 Morphine Sulfate 2 mg Q4HPRN PRN IV 05/20/24 19:15 Exam Vital Signs Vital Signs Date Time Temp Pulse Resp B/P (MAP) Pulse Ox O2 Delivery O2 Flow Rate FiO2 05/20/24 19:56 98.7 71 18 147/87 96 21 98.7 05/20/24 19:56 Room Air 05/20/24 19:56 0 General Appearance: Alert, Oriented X3, Cooperative, No acute distress HEENT: Atraumatic, PERRLA, EOMI, Mucous membr. moist/pink Respiratory: Normal air movement, Other (Wheezing, coughing) Cardiovascular: Regular rate, Normal S1, Normal S2, No murmurs Abdominal: Normal bowel sounds, Soft, No tenderness, No hepatospenomegaly, No masses Extremities: No clubbing, No cyanosis, No edema, Normal pulses, No tenderness/swelling Skin: No rashes, No breakdown, No significant lesion Neuro: Normal gait, Normal speech, Strength at 5/5 X4 ext, Normal tone, Sensation intact, Cranial nerves 3-12 NL, Reflexes 2+ Psych/Mental Status: Mental status NL, Mood NL Labs/Xrays Labs Test 05/20/24 17:18 05/20/24 16:40 05/20/24 16:38 05/20/24 14:35 Range/Units Troponin I High Sensitivity < 3 L </=54 ng/L Urine Color Light-yellow Yellow Urine Clarity Clear Clear Urine pH 6.0 5.0-9.0 Urine Specific [place] 1.022 1.001-1.035 Urine Protein Negative Negative Urine Ketones Negative Negative Urine Blood Negative Negative /uL Urine Nitrite Negative Negative Urine Bilirubin Negative Negative Urine Urobilinogen Normal Negative mg/dL Urine Leukocyte Esterase Negative Negative /uL Urine RBC 1 0 - 3 /hpf Urine WBC 2 0 - 3 /hpf Urine Squamous Epithelial Cells None seen <5 /hpf Urine Bacteria None seen None Seen /hpf Urine Glucose Normal Normal mg/dL Influenza Type A Antigen Negative Negative Influenza Type B Antigen Negative Negative SARS-CoV-2 Antigen (Rapid) Negative NEGATIVE White Blood Count 7.4 4.4-10.8 10^3/uL Red Blood Count 5.25 4.5-5.90 10^6/uL Hemoglobin 15.7 13.5-17.5 g/dL Hematocrit 45.8 41.0-53.0 % Mean Corpuscular Volume 87.4 80.0-100.0 fL Mean Corpuscular Hemoglobin 29.9 28.0-32.0 pg Mean Corpuscular Hemoglobin Concent 34.2 32.0-36.0 g/dL Red Cell Distribution Width 12.6 11.8-14.3 % Platelet Count 195 140-450 10^3/uL Mean Platelet Volume 7.7 6.9-10.8 fL Neutrophils (%) (Auto) 67.2 37.0-80.0 % Lymphocytes (%) (Auto) 21.2 10.0-50.0 % Monocytes (%) (Auto) 8.9 0.0-12.0 % Eosinophils (%) (Auto) 1.8 0.0-7.0 % Basophils (%) (Auto) 0.9 0.0-2.0 % Neutrophils # (Auto) 5.0 1.6-8.6 10 ^3/uL Lymphocytes # (Auto) 1.6 0.4-5.4 10 ^3/uL Monocytes # (Auto) 0.7 0-1.3 10 ^3/uL Eosinophils # (Auto) 0.1 0-0.8 10 ^3/uL Basophils # (Auto) 0.1 0-0.2 10 ^3/uL Nucleated Red Blood Cells 0.1 % Sodium Level 143 136-145 mmol/L Potassium Level 4.2 3.5-5.1 mmol/L Chloride Level 107 98-107 mmol/L Carbon Dioxide Level 29 20-31 mmol/L Anion Gap 7 5-15 Blood Urea Nitrogen 18 9-23 mg/dL Creatinine 0.99 0.700-1.30 mg/dL Glomerular Filtration Rate Calc 89 >90 mL/min BUN/Creatinine Ratio 18.2 10.0-20.0 Serum Glucose 98 74-106 mg/dL Calcium Level 9.8 8.7-10.4 mg/dL Total Bilirubin 0.4 0.2-1.0 mg/dL Aspartate Amino Transferase (AST) 25 13-40 U/L Alanine Aminotransferase (ALT) 54 H 7-40 U/L Alkaline Phosphatase 94 46-116 U/L B-Type Natriuretic Peptide 12.42 0-100 pg/mL Total Protein 6.9 5.7-8.2 g/dL Albumin 4.5 3.2-4.8 g/dL PATIENT: JESUS MANUEL WHEATLEY JRACCT: [id number] UNIT: [id number] : 1965 LOC: ER ROOM / BED: / AGE / SEX: 58 / M ADM STATUS: REG ER SERVICE 1443 ORDERING PHYSICIAN: ALONSO NEWTON MD PROCEDURE(s): CXRP - CHEST PORTABLE REASON: CP ORDER NUMBER(s): [id number], ACCESSION NUMBER(s): [id number] CHEST RADIOGRAPH Indication: CP Technique: Single frontal view of the chest was obtained COMPARISON: CHEST PORTABLE on DOS: 11/18/20 FINDINGS: Lines and Tubes: None Lungs: Clear Pleura: No effusion. No pneumothorax. Cardiomediastinal contours: Unremarkable Bones: Unremarkable IMPRESSION: 1. No acute disease. Assessment/Plan Assessment/Plan Acute respiratory failure with hypoxia Acute bronchitis with asthma with acute exacerbation Plan 1. Admit to telemetry unit 2. Breathing treatment 3. Pain control management 4. Management of fluids and electrolytes 5. Consultation for hospitalist 6. Diagnostic tests chest x-ray 7. DVT prophylaxis-on SCDs 8. Repeat labs CBC, CMP in a.m. 9. Continue with current medical management 10. Treatment plan discussed with patient and RN. Patient verbalized understanding. Plan discussed with: Patient, Other (RN) My Orders Orders - SUNNY DUONG DNP Procedure Category Date Status Time Albuterol Medneb PHA 05/20/24 In Process (Ventolin Medneb) 19:15 Ipratropium Medneb PHA 05/20/24 In Process (Atrovent Medneb) 19:15 Methylprednisolone PHA 05/20/24 In Process Sod Succ (Solu Medrol 22:00 Famotidine Injection PHA 05/20/24 In Process (Pepcid Injection) 22:00 Allergies MARILY 05/20/24 In Process 19:15 Code Status CODE 05/20/24 Transmitted 19:15 Sodium Chloride Lock PHA 05/20/24 In Process (Saline Lock Ns) 22:00 Oxygen Per Hour RT 05/20/24 Transmitted 19:15 Hydrocodone-Acet PHA 05/20/24 In Process 5/325mg Tab ([place] 19:15 Ondansetron Hcl PHA 05/20/24 In Process (Zofran) 19:15 Docusate Sodium PHA 05/20/24 In Process Capsule ([place] 19:15 Complete Blood Count LAB 05/21/24 Verified 04:00 Comprehensive LAB 05/21/24 Verified Metabolic Panel 04:00 Cardiac DIET 05/21/24 Transmitted Diet-2gna,Lofat,Lochol Breakfast Condition: Serious MARILY 05/20/24 In Process 19:15 Acetaminophen Tablet PHA 05/20/24 In Process (Tylenol Tablet) 19:15 Bedrest With Bathroom MARILY 05/20/24 In Process Privileg 19:15 Morphine Sulfate PHA 05/20/24 In Process Injection 19:15 Sequential MARILY 05/20/24 In Process Compression Device *Consult CONS 05/20/24 Transmitted / 19:20 Admit ADMIT 05/20/24 Transmitted 20:44 Nitroglycerin PHA 05/20/24 Transmitted Sublingual (Ntrostat 20:45 Morphine Sulfate PHA 05/20/24 Transmitted Injection 20:45 Notify Of Changes MARILY 05/20/24 Transmitted From Base 20:44 Director Emergency Services For MARILY 05/20/24 Transmitted 24 Hours 20:44 Emergency Dysrhythmia MARILY 05/20/24 Transmitted Protocol 20:44 Rhythm Strips Once MARILY 05/20/24 Transmitted Every Shift 20:44 Oxygen By Nasal RT 05/20/24 Transmitted Cannula 20:44 Problem List: (1) Acute respiratory failure with hypoxia (2) Acute bronchitis with asthma with acute exacerbation Date of Service: May 20, 2024 Billing Provider: SUNNY DUONG DNP Common Visit Codes: 64044-[id number] INP/OBS CARE (HIGH) SUNNY DUONG DNP May 20, 2024 20:46
[2024-05-20] MEDS: HYDROcodone-ACET 5/325MG TAB PO PRN (21:22)
[2024-05-21] VITALS (7 sets, daily range): PULSE 65–88; RESP 14–18; O2SAT 93–98
[2024-05-21] MEDS: SODIUM CHLOR 0.9% PF (SALINE LOCK) 10ML VIAL/SYR IV SCH (01:27)
[2024-05-21] MEDS: HYDROcodone-ACET 5/325MG TAB PO PRN (01:36)
[2024-05-21] MEDS: methylPREDNISolone SOD SUCC 40 MG/ML VL IV SCH (01:41)
[2024-05-21] MEDS: FAMOTIDINE (10MG/ML) 2ML VL IV SCH (01:41)
[2024-05-21] MEDS: IBUPROFEN 800 MG TAB PO PRN (05:58)
[2024-05-21 08:26] LABS: Basophils # (auto) 0 10 ^3/uL (0-0.2); Eosinophils # (auto) 0 10 ^3/uL (0-0.8); Hematocrit 41.6 % (41.0-53.0); Lymphocytes # (auto) 0.8 10 ^3/uL (0.4-5.4); Lymphocytes % (auto) 11.6 % (10.0-50.0); Mean Corpuscular Hemoglobin 29.5 pg (28.0-32.0); Mean Corpuscular Hgb Conc. 33.7 g/dL (32.0-36.0); Mean Corpuscular Volume 87.6 fL (80.0-100.0); Monocytes # (auto) 0.2 10 ^3/uL (0-1.3); Monocytes % (auto) 2.2 % (0.0-12.0); Neutrophils # (auto) 5.9 10 ^3/uL (1.6-8.6); Neutrophils % (auto) 86.2 % (37.0-80.0); Nucleated Red Blood Cells % 0.1 %; Platelet Count (auto) 183 10^3/uL (140-450); Red Blood Cells 4.75 10^6/uL (4.5-5.90); Red Cell Distribution Width 12.9 % (11.8-14.3); White Blood Cell 6.9 10^3/uL (4.4-10.8)
[2024-05-21 08:42] LABS: Albumin 4.4 g/dL (3.2-4.8); Alkaline Phosphatase 85 U/L (46-116); Anion Gap 11 (5-15); Aspartate Aminotransferase 24 U/L (13-40); BUN/Creatinine Ratio 14.4 (10.0-20.0); Blood Urea Nitrogen 13 mg/dL (9-23); Calcium 9.6 mg/dL (8.7-10.4); Carbon Dioxide 24 mmol/L (20-31); Chloride 105 mmol/L (98-107); Sodium 140 mmol/L (136-145)
[2024-05-21 08:43] LABS: Bilirubin, Total 0.3 mg/dL (0.2-1.0); Total Protein 6.6 g/dL (5.7-8.2)
[2024-05-21 08:52] LABS: Alanine Aminotransferase 48 U/L (7-40); Glucose 137 mg/dL (74-106)
[2024-05-21] MEDS: ALBUTEROL SULF 2.5 MG/0.5ML(0.5%) NEB SOLN NEB PRN (09:26)
[2024-05-21] MEDS: IPRATROPIUM BROM 0.5 MG/2.5ML INH SOL NEB PRN (09:26)
[2024-05-21] MEDS: cefTRIAXone 1GM/50ML D5W 50 ML IV SCH (14:08)
--- NOTE | 2024-05-21 18:14 | DVHPNRES ---
Progress Note Date Seen: May 21, 2024 Resident Creating Document: URBANO GUIDRY RESIDENT Has the PT tested + for MRSA If YES, has PT been informed?: No Medical Necessity Reason Pt with a Central, PICC or Fol: No Subjective Review of Systems A 58 year old male with PMHx asthma and hyperlipidemia presents to the ED due to shortness of breath for 2 days. Patient states he was sleeping, woke up experiencing shortness of breath, cough and describes as a burning sensation in his lungs. Objective vital signs Vital Sign Date Time Temp Pulse Resp B/P (MAP) Pulse Ox O2 Delivery O2 Flow Rate FiO2 05/21/24 15:51 90 18 141/98 (112) 98 05/21/24 15:33 Room Air* 0 21 05/21/24 13:01 98.1 98.1 medications Current Medications Medications Dose Ordered Sig/Arnold Route Start Time Stop Time Status Last Admin Dose Admin Albuterol 2.5 mg Q4HPRN PRN NEB 05/20/24 19:15 05/21/24 15:33 2.5 MG Ipratropium [place] 0.5 mg Q4HPRN PRN NEB 05/20/24 19:15 05/21/24 15:33 0.5 MG Methylprednisolone Sodium Succinate 40 mg Q8HR IV 05/20/24 22:00 05/21/24 14:08 40 MG Famotidine 20 mg Q12HR IV 05/20/24 22:00 05/21/24 10:19 20 MG Sodium Chloride 10 ml Q8HR IV 05/20/24 22:00 05/21/24 14:07 10 ML Ondansetron HCl 4 mg Q4HP PRN IV 05/20/24 19:15 Docusate Sodium 100 mg BIDPRN PRN PO 05/20/24 19:15 Acetaminophen 650 mg Q6HP PRN PO 05/20/24 19:15 Morphine Sulfate 2 mg Q4HPRN PRN IV 05/20/24 19:15 Nitroglycerin 0.4 mg Q5MINP PRN SL 05/20/24 20:45 Morphine Sulfate 2 mg Q30M PRN IV 05/20/24 20:45 Acetaminophen/ Hydrocodone Bitart 1 tab Q6HPRN PRN PO 05/21/24 01:45 05/21/24 11:39 1 TAB Ibuprofen 800 mg Q6HP PRN PO 05/21/24 05:45 05/21/24 05:58 800 MG Ceftriaxone Sodium 50 ml @ 100 mls/hr DAILY@09 IV 05/21/24 13:15 05/21/24 14:08 100 MLS/HR Azithromycin 250 ml @ 125 mls/hr DAILY IV 05/22/24 10:00 Examination GEN: Healthy appearing, well-developed, NAD. PSYCH: Good Judgment. AOx3. Normal memory, mood, and affect. HEENT -Head: normocephalic atraumatic, no facial trauma, neck is supple -Eyes: PERRL, EOMI. No discharge or redness; -Ears: External ears are normal. Normal TMs. -Nose: Normal nares. -Mouth and throat: MMM. Normal gums, mucosa, palate,. Good dentition. NECK: Supple, with no masses. CV: RRR, no m/r/g. LUNGS: wheezing bibasilar ABD: Soft, ND/NT. No evidence of fluid wave. No pulsatile masses on exam, rebound tenderness, Schneider sign or pain over Mcburney's point. : N/A SKIN: Warm, well perfused. No skin rashes or abnormal lesions. MSK: No deformities or signs of scoliosis. Normal gait. EXT: No clubbing, cyanosis, or edema. NEURO: Ambulating with no limitations. Normal muscle strength and tone. No focal deficits. laboratory and microbiology Laboratory Tests 05/21/24 07:32 Test 05/21/24 07:32 Range/Units Serum Glucose 137 H 74-106 mg/dL Labs and/or images reviewed: Labs reviewed by me Problem List/Assessment/Plan Problem List/Assessment/Plan #Acute respiratory failure with hypoxia due to asthma exacerbation #Asthma exacerbation #Early pneumonia #Hyperlipidemia #Polysubstance use disorder Cardiac diet AB: ceftriaxone and azithromycin Methylprednisolone 40 mg q8h Breathing treatments Counseled on cessation of polysubstance use for 18 minutes Goals of care discussed for 20 minutes; full code Case discussed with Dr Sol Plan discussed with: Patient, Other My Orders My Orders Orders - URBANO GUIDRY RESIDENT Procedure Category Date Status Time Ceftriaxone 1gm/50ml PHA 05/21/24 In Process D5w (Rocephin) 13:15 Azithromycin 500mg/ PHA 05/22/24 In Process 250ml (Zithromax 50 10:00 Polyethylene Glycol PHA 05/21/24 Verified 17g Powder (Miralax 18:15 Addendum Addendum Addendum I was physically present for the morales portions of the service provided to patient by THE RESIDENT. I have reviewed the documentation, discussed the case with resident and agree with the resident's documentation except as noted. Also the patient's clinical case was discussed with the patient's nurse. This medical document was created using an electronic medical record system with computerized dictation system. Although this document has been carefully reviewed, there might still be some phonetic and typographical errors. These areas are purely typographical due to imperfections of the software programs, and do not reflect any compromise in the patient's medical care. Late signature. Date of Service: May 21, 2024 Billing Provider: GLENN SLO MD Common Visit Codes: [id number] INP/OBS CARE(HIGH) Secondary Visit Codes: [id number] CHNG SMOKING >10MIN (Counseled on cessation of polysubstance use for 18 minute), [id number] CARE PLAN 30 MINUTES (20 minutes) URBANO GUIDRY RESIDENT May 21, 2024 18:14 GLENN SOL MD May 22, 2024 13:26
[2024-05-21] MEDS ORDERED: POLYETHYLENE GLYCOL 17 GM PWDR PO PRN (18:15)
[2024-05-21] MEDS: ENOXAPARIN SOD 100 MG/1 ML SYRINGE SC SCH (20:00)
--- NOTE | 2024-05-21 20:52 | DVHINCON2 ---
Date of service: May 21, 2024 Referring Physician Bj Stone DNP Reason for Consultation Acute hypoxic respiratory failure and asthma exacerbation History of Present Illness A 58-year-old man with past medical history of asthma and hyperlipidemia who presented to ED on 05/20/24 with complaint of shortness of breath. Patient reported symptoms progressively got worse with cough, chest pain described as burning sensation, getting worse that prompted this visit. ED workup noted WBC 7.4, platelets 195, sodium 143, potassium 4.2, BUN 18, creatinine 0.99, glucose 98, AST 25, ALT 54, troponin 3, BNP 12.42. Blood pressure 147/87, heart rate 72, temperature 98.7 F, O2 saturation 96% on oxygen. Patient was started on IV Solu-Medrol, given breathing treatment and placed on supplemental oxygen. On subsequent assessment, patient denied chest pain, headache, dizziness, diaphoresis, N/V, fever or chills. Patient was admitted for further care and pulmonary consultation is requested for evaluation and management of acute hypoxic respiratory failure and asthma exacerbation. Review of Systems: 14-point review of systems negative unless otherwise noted above. Past Medical History: Asthma, Hyperlipidemia Past Surgical History: Tonsillectomy Medications: Reviewed. Allergies: No known drug allergies. Family History: No family history of premature CAD. No family history of lung disorders. Social History: Ex-smoker. Quit smoking greater than 1 year ago. He drinks alcohol heavily. Admits to drug use, uses marijuana and methamphetamine. Family History: Patient reports no known family medical history. Allergies: Coded Allergies: NO KNOWN ALLERGIES (Unverified , 07/04/10) Home Meds Active Scripts Naloxone HCl (Naloxone Hydrochloride) 4 Mg/0.1 Ml Spr, 4 MG NA PRN, #2 SPRAY Prov:BALBINA CLEMONS MD 05/24/24 Hydrocodone-Acetaminophen (Hydrocodone Bitartrate/AC 5-325 mg) 1 Tab Tab, 1 TAB PO Q6HP PRN, #15 TAB Prov:BALBINA CLEMONS MD 05/24/24 Methylprednisolone (Medrol Dosepak) 4 Mg Blake, 4 MG PO UD, #21 TAB UAD Prov:URBANO GUIDRY 05/23/24 Levofloxacin Hemihydrate (LEVAQUIN 500 MG) 500 Mg Tab, 1 TAB PO DAILY, #3 % Prov:URBANO GUIDRY 05/23/24 Hydrocortisone Base (Anusol-Hc) 2.5 % Cre, 1 APPLIC TOP BID for 5 Days, #5 GRAMS 1 Refill Prov:EBONIE RODRIGUES MD 08/22/22 Pantoprazole Sodium Sesquihydr (Protonix) 40 Mg Tab, 40 MG PO DAILY for 10 Days, #10 TAB Prov:EBONIE RODRIGUES MD 08/22/22 Reported Medications Gabapentin (Gabapentin) 300 Mg Cap, 1 CAP PO BID, #90 CAP 5 Refills 09/30/23 Albuterol Sulfate (Albuterol Sulfate Hfa) 108 Mcg/Act Aer, INH 05/01/23 Discontinued Scripts Metronidazole (Metronidazole) 500 Mg Tab, 500 MG PO TID for 14 Days, #42 TAB Prov:SHASHANK YORK 10/01/23 Levofloxacin Hemihydrate (LEVOFLOXACIN) 750 Mg Tab, 500 MG PO DAILY for 14 Days, #10 TAB Prov:SHASHANK YORK 10/01/23 Naproxen (Naproxen) 500 Mg Tab, 500 MG PO BIDP PRN for 7 Days, #14 TAB Prov:TOLU KELLY DO 05/02/23 Metronidazole (Flagyl) 500 Mg Tab, 1 TAB PO TID for 5 Days, #15 TAB Prov:TOLU KELLY DO 05/02/23 Current Medications Current Medications Medications (Trade) Dose Ordered Sig/Arnold Route PRN Reason Start Time Stop Time Status Last Admin Methylprednisolone Sodium Succinate (Solu Medrol) 40 mg Q8HR IV 05/20/24 22:00 05/21/24 14:08 Famotidine (Pepcid Injection) 20 mg Q12HR IV 05/20/24 22:00 05/21/24 10:19 Sodium Chloride (Saline [place]) 10 ml Q8HR IV 05/20/24 22:00 05/21/24 14:07 Acetaminophen/ Hydrocodone Bitart ([place] 5/325MG Tab) 1 tab Q6HPRN PRN PO MODERATE PAIN (4-6 PAIN SCALE) 05/21/24 01:45 05/21/24 11:39 Ibuprofen (Motrin Tablet) 800 mg Q6HP PRN PO MODERATE PAIN (4-6 PAIN SCALE) 05/21/24 05:45 05/21/24 05:58 Ceftriaxone Sodium 50 ml @ 100 mls/hr DAILY@09 IV 05/21/24 13:15 05/21/24 14:08 Azithromycin 250 ml @ 125 mls/hr DAILY IV 05/22/24 10:00 Polyethylene Glycol (Miralax 17GM Powder) 17 gm DAILYPRN PRN PO FOR CONSTIPATION 05/21/24 18:15 Enoxaparin Sodium (Lovenox) 100 mg DAILY SC 05/22/24 10:00 UNV Enoxaparin Sodium (Lovenox) 100 mg Q12H SC 05/21/24 20:00 Vital Signs Vital Signs Date Time Temp Pulse Resp B/P (MAP) Pulse Ox O2 Delivery O2 Flow Rate FiO2 05/21/24 20:49 98.4 92 16 131/73 (92) 91 98.4 05/21/24 15:33 Room Air* 0 21 Physical Exam Gen.: Patient lying in bed in no apparent distress. Breathing on room air. Head: Normocephalic, atraumatic. Eyes: EOMI/PERRLA. Ears: Normal hearing. Normal anatomy. Neck/trachea: Trachea midline, supple. Nose: Normal external anatomy. Mouth: Moist mucous membranes. Chest: Decreased air entry bilaterally. No wheezing or rhonchi. Cardiovascular: Positive S1, positive S2. Regular rate and rhythm. Abdomen: Positive bowel sounds in all 4 quadrants. Soft, non-tender, non- distended. : Deferred. Rectal: Deferred. Skin: Warm, dry. Intact. Extremities: 2+ radial pulses bilaterally. No lower extremity edema. Neuro: Awake, alert, oriented x3. No gross motor or sensory deficits. Cranial nerves II through XII intact. Gait not assessed. Labs/Diagnostic Data Labs Test 05/21/24 07:32 05/20/24 17:18 05/20/24 16:40 05/20/24 16:38 Range/Units White Blood Count 6.9 4.4-10.8 10^3/uL Red Blood Count 4.75 4.5-5.90 10^6/uL Hemoglobin 14.0 13.5-17.5 g/dL Hematocrit 41.6 41.0-53.0 % Mean Corpuscular Volume 87.6 80.0-100.0 fL Mean Corpuscular Hemoglobin 29.5 28.0-32.0 pg Mean Corpuscular Hemoglobin Concent 33.7 32.0-36.0 g/dL Red Cell Distribution Width 12.9 11.8-14.3 % Platelet Count 183 140-450 10^3/uL Mean Platelet Volume 7.9 6.9-10.8 fL Neutrophils (%) (Auto) 86.2 H 37.0-80.0 % Lymphocytes (%) (Auto) 11.6 10.0-50.0 % Monocytes (%) (Auto) 2.2 0.0-12.0 % Eosinophils (%) (Auto) 0.0 0.0-7.0 % Basophils (%) (Auto) 0.0 0.0-2.0 % Neutrophils # (Auto) 5.9 1.6-8.6 10 ^3/uL Lymphocytes # (Auto) 0.8 0.4-5.4 10 ^3/uL Monocytes # (Auto) 0.2 0-1.3 10 ^3/uL Eosinophils # (Auto) 0 0-0.8 10 ^3/uL Basophils # (Auto) 0 0-0.2 10 ^3/uL Nucleated Red Blood Cells 0.1 % Sodium Level 140 136-145 mmol/L Potassium Level 4.0 3.5-5.1 mmol/L Chloride Level 105 98-107 mmol/L Carbon Dioxide Level 24 20-31 mmol/L Anion Gap 11 5-15 Blood Urea Nitrogen 13 9-23 mg/dL Creatinine 0.90 0.700-1.30 mg/dL Glomerular Filtration Rate Calc 100 >90 mL/min BUN/Creatinine Ratio 14.4 10.0-20.0 Serum Glucose 137 H 74-106 mg/dL Calcium Level 9.6 8.7-10.4 mg/dL Total Bilirubin 0.3 0.2-1.0 mg/dL Aspartate Amino Transferase (AST) 24 13-40 U/L Alanine Aminotransferase (ALT) 48 H 7-40 U/L Alkaline Phosphatase 85 46-116 U/L Total Protein 6.6 5.7-8.2 g/dL Albumin 4.4 3.2-4.8 g/dL Thyroid Stimulating Hormone (TSH) 0.89 0.55-4.78 uIU/mL Troponin I High Sensitivity < 3 L </=54 ng/L Urine Color Light-yellow Yellow Urine Clarity Clear Clear Urine pH 6.0 5.0-9.0 Urine Specific [place] 1.022 1.001-1.035 Urine Protein Negative Negative Urine Ketones Negative Negative Urine Blood Negative Negative /uL Urine Nitrite Negative Negative Urine Bilirubin Negative Negative Urine Urobilinogen Normal Negative mg/dL Urine Leukocyte Esterase Negative Negative /uL Urine RBC 1 0 - 3 /hpf Urine WBC 2 0 - 3 /hpf Urine Squamous Epithelial Cells None seen <5 /hpf Urine Bacteria None seen None Seen /hpf Urine Glucose Normal Normal mg/dL Influenza Type A Antigen Negative Negative Influenza Type B Antigen Negative Negative SARS-CoV-2 Antigen (Rapid) Negative NEGATIVE Test 05/20/24 14:35 Range/Units B-Type Natriuretic Peptide 12.42 0-100 pg/mL Assessment Impression: Acute hypoxic respiratory failure Acute exacerbation of asthma Hx of nicotine dependence Marijuana use Methamphetamine use. Obesity BMI 34.1 Plan: Supplemental oxygen PRN Titrate to keep O2 sats above 92%. CXR reviewed, demonstrates no acute opacities. Continue bronchodilators. IV steroids Continue antibiotics Monitor renal function. Monitor electrolytes. Supplement as necessary. Monitor ins and outs. Counseled against marijuana and meth use. Diet and lifestyle modifications for weight reduction Obesity - complicates all care GI prophylaxis- Pepcid DVT prophylaxis. Prognosis: Poor given patient's multiple co-morbidities. Rest of plan per hospitalist and other consultants. Thank you Bj Stone DNP, for allowing me to participate in this patient's care. Further recommendations will depend on the patient's clinical course. Please do not hesitate to contact me if you have any questions or concerns. This medical document was created using an electronic medical record system with [employer] dictation system. Although these documentations are being carefully reviewed, there may still be some phonetic and typographical changes. The errors are purely typographical, due to imperfection on the software program, and do not reflect any compromise in the patient's medical care. Plan discussed with: Patient, Other (RN/SAMIRA Stone) ELINA FERNANDEZ MD May 21, 2024 20:52
[2024-05-22] VITALS (11 sets, daily range): BP systolic 115–142; BP diastolic 66–85; PULSE 20–90; RESP 16–20; TEMP 98.2–98.7; O2SAT 92–98
[2024-05-22 06:59] LABS: Albumin 4.1 g/dL (3.2-4.8); Alkaline Phosphatase 76 U/L (46-116); Anion Gap 7 (5-15); Aspartate Aminotransferase 18 U/L (13-40); BUN/Creatinine Ratio 18.3 (10.0-20.0); Bilirubin, Total 0.3 mg/dL (0.2-1.0); Blood Urea Nitrogen 19 mg/dL (9-23); Calcium 9.9 mg/dL (8.7-10.4); Carbon Dioxide 27 mmol/L (20-31); Chloride 107 mmol/L (98-107); Potassium 4.6 mmol/L (3.5-5.1); Sodium 141 mmol/L (136-145); Total Protein 6.6 g/dL (5.7-8.2)
[2024-05-22 07:00] LABS: Alanine Aminotransferase 43 U/L (7-40); Glucose 120 mg/dL (74-106)
[2024-05-22] MEDS ORDERED: ENOXAPARIN SOD 100 MG/1 ML SYRINGE SC SCH (10:00)
[2024-05-22] MEDS: AZITHROMYCIN 500MG/ 250ML 250 ML IV SCH (10:07)
[2024-05-22] MEDS: MORPHINE SULFATE INJ 2 MG/ml SYRG IV PRN (10:58)
[2024-05-22] MEDS: ONDANSETRON HCL 4 MG/2 ML VIAL IV PRN (11:00)
--- NOTE | 2024-05-22 13:29 | DVHPNRES ---
Progress Note Date Seen: May 22, 2024 Resident Creating Document: URBANO GUIDRY RESIDENT Has the PT tested + for MRSA If YES, has PT been informed?: No Medical Necessity Reason Pt with a Central, PICC or Fol: No Subjective Review of Systems A 58 year old male with PMHx asthma and hyperlipidemia presents to the ED due to shortness of breath for 2 days. Patient states he was sleeping, woke up experiencing shortness of breath, cough and describes as a burning sensation in his lungs. Objective vital signs Vital Sign Date Time Temp Pulse Resp B/P (MAP) Pulse Ox O2 Delivery O2 Flow Rate FiO2 05/22/24 10:58 67 13 124/73 05/22/24 09:30 94 05/22/24 09:00 Room Air* 0 21 05/22/24 01:24 97.8 Total Intake and Output 05/21/24 05/21/24 05/22/24 15:00 23:00 07:00 Intake Total 50 ml Balance 50 ml medications Current Medications Medications Dose Ordered Sig/Arnold Route Start Time Stop Time Status Last Admin Dose Admin Albuterol 2.5 mg Q4HPRN PRN NEB 05/20/24 19:15 05/22/24 08:56 2.5 MG Ipratropium [place] 0.5 mg Q4HPRN PRN NEB 05/20/24 19:15 05/22/24 08:56 0.5 MG Methylprednisolone Sodium Succinate 40 mg Q8HR IV 05/20/24 22:00 05/22/24 05:43 40 MG Famotidine 20 mg Q12HR IV 05/20/24 22:00 05/22/24 09:53 20 MG Sodium Chloride 10 ml Q8HR IV 05/20/24 22:00 05/22/24 05:42 10 ML Ondansetron HCl 4 mg Q4HP PRN IV 05/20/24 19:15 05/22/24 11:00 4 MG Docusate Sodium 100 mg BIDPRN PRN PO 05/20/24 19:15 Acetaminophen 650 mg Q6HP PRN PO 05/20/24 19:15 Morphine Sulfate 2 mg Q4HPRN PRN IV 05/20/24 19:15 05/22/24 10:58 2 MG Nitroglycerin 0.4 mg Q5MINP PRN SL 05/20/24 20:45 Morphine Sulfate 2 mg Q30M PRN IV 05/20/24 20:45 Acetaminophen/ Hydrocodone Bitart 1 tab Q6HPRN PRN PO 05/21/24 01:45 05/22/24 06:29 1 TAB Ibuprofen 800 mg Q6HP PRN PO 05/21/24 05:45 05/21/24 20:59 800 MG Ceftriaxone Sodium 50 ml @ 100 mls/hr DAILY@09 IV 05/21/24 13:15 05/22/24 09:11 100 MLS/HR Azithromycin 250 ml @ 125 mls/hr DAILY IV 05/22/24 10:00 05/22/24 10:07 125 MLS/HR Polyethylene Glycol 17 gm DAILYPRN PRN PO 05/21/24 18:15 Enoxaparin Sodium 100 mg DAILY SC 05/22/24 10:00 UNV Enoxaparin Sodium 100 mg Q12H SC 05/21/24 20:00 05/22/24 08:10 100 MG Examination GEN: Healthy appearing, well-developed, NAD. PSYCH: Good Judgment. AOx3. Normal memory, mood, and affect. HEENT -Head: normocephalic atraumatic, no facial trauma, neck is supple -Eyes: PERRL, EOMI. No discharge or redness; -Ears: External ears are normal. Normal TMs. -Nose: Normal nares. -Mouth and throat: MMM. Normal gums, mucosa, palate,. Good dentition. NECK: Supple, with no masses. CV: RRR, no m/r/g. LUNGS: wheezing bibasilar ABD: Soft, ND/NT. No evidence of fluid wave. No pulsatile masses on exam, rebound tenderness, Schneider sign or pain over Mcburney's point. : N/A SKIN: Warm, well perfused. No skin rashes or abnormal lesions. MSK: No deformities or signs of scoliosis. Normal gait. EXT: No clubbing, cyanosis, or edema. NEURO: Ambulating with no limitations. Normal muscle strength and tone. No focal deficits. laboratory and microbiology Laboratory Tests 05/22/24 06:09 05/21/24 07:32 Test 05/22/24 06:09 Range/Units Serum Glucose 120 H 74-106 mg/dL Problem List/Assessment/Plan Problem List/Assessment/Plan #Acute respiratory failure with hypoxia due to asthma exacerbation #Asthma exacerbation #Early pneumonia #Hyperlipidemia Cardiac diet AB: ceftriaxone and azithromycin Methylprednisolone 40 mg q8h Breathing treatments Budesonide neb Pt is still wheezing, inhaled steroid is added Case discussed with Dr Funez Time spent on care 23 min Plan discussed with: Patient, Other (rn) My Orders My Orders Orders - URBANO GUIDRY Procedure Category Date Status Time Polyethylene Glycol PHA 05/21/24 In Process 17g Powder (Miralax 18:15 Enoxaparin Sodium PHA 05/21/24 In Process (Lovenox) 20:00 Drug Screen LAB 05/22/24 Logged 07:01 Date of Service: May 22, 2024 Billing Provider: BALBINA FUNEZ MD Common Visit Codes: [id number] INP/OBS CARE(HIGH) URBANO GUIDRY May 22, 2024 13:29 BALBINA FUNEZ MD May 22, 2024 20:18
[2024-05-22] MEDS: PNEUMOCOCCAL VACC POLYS 25 MCG/0.5 ML VIAL IM ONE (18:00)
[2024-05-22] MEDS: DOCUSATE SOD 100 MG CAP PO PRN (18:01)
[2024-05-22] MEDS: BUDESONIDE (INHALATION) 0.5 MG/2 ML NEB NEB SCH (18:28)
--- NOTE | 2024-05-22 20:36 | DVHPN2 ---
Progress Note - Dictate Date Seen: May 22, 2024 Has the PT tested + for MRSA If YES, has PT been informed?: No Medical Necessity Reason Pt with a Central, PICC or Fol: No Subjective Patient seen and examined at bedside. On supplemental oxygen Overnight events reviewed. vital signs Vital Sign Date Time Temp Pulse Resp B/P (MAP) Pulse Ox O2 Delivery O2 Flow Rate FiO2 05/22/24 18:38 70 20 98 05/22/24 18:28 Room Air* 0 21 05/22/24 17:30 124/73 05/22/24 17:00 98.7 98.7 Total Intake and Output 05/21/24 05/21/24 05/22/24 15:00 23:00 07:00 Intake Total 50 ml Balance 50 ml medications Current Medications Medications Dose Ordered Sig/Arnold Route Start Time Stop Time Status Last Admin Dose Admin Albuterol 2.5 mg Q4HPRN PRN NEB 05/20/24 19:15 05/22/24 18:28 2.5 MG Ipratropium [place] 0.5 mg Q4HPRN PRN NEB 05/20/24 19:15 05/22/24 18:28 0.5 MG Methylprednisolone Sodium Succinate 40 mg Q8HR IV 05/20/24 22:00 05/22/24 14:08 40 MG Famotidine 20 mg Q12HR IV 05/20/24 22:00 05/22/24 09:53 20 MG Sodium Chloride 10 ml Q8HR IV 05/20/24 22:00 05/22/24 14:04 10 ML Ondansetron HCl 4 mg Q4HP PRN IV 05/20/24 19:15 05/22/24 16:24 4 MG Docusate Sodium 100 mg BIDPRN PRN PO 05/20/24 19:15 05/22/24 18:01 100 MG Acetaminophen 650 mg Q6HP PRN PO 05/20/24 19:15 Morphine Sulfate 2 mg Q4HPRN PRN IV 05/20/24 19:15 05/22/24 16:28 2 MG Nitroglycerin 0.4 mg Q5MINP PRN SL 05/20/24 20:45 Morphine Sulfate 2 mg Q30M PRN IV 05/20/24 20:45 Acetaminophen/ Hydrocodone Bitart 1 tab Q6HPRN PRN PO 05/21/24 01:45 05/22/24 18:02 1 TAB Ibuprofen 800 mg Q6HP PRN PO 05/21/24 05:45 05/22/24 15:07 800 MG Ceftriaxone Sodium 50 ml @ 100 mls/hr DAILY@09 IV 05/21/24 13:15 05/22/24 09:11 100 MLS/HR Azithromycin 250 ml @ 125 mls/hr DAILY IV 05/22/24 10:00 05/22/24 10:07 125 MLS/HR Polyethylene Glycol 17 gm DAILYPRN PRN PO 05/21/24 18:15 Enoxaparin Sodium 100 mg DAILY SC 05/22/24 10:00 UNV Enoxaparin Sodium 100 mg Q12H SC 05/21/24 20:00 05/22/24 08:10 100 MG Budesonide 0.25 mg BID NEB 05/22/24 22:00 05/22/24 18:28 0.25 MG objective Gen.: Patient lying in bed in no apparent distress. On supplemental oxygen. Head: Normocephalic, atraumatic. Eyes: EOMI/PERRLA. Ears: Normal hearing. Normal anatomy. Neck/trachea: Trachea midline, supple. Nose: Normal external anatomy. Mouth: Moist mucous membranes. Chest: Decreased air entry bilaterally. No wheezing or rhonchi. Cardiovascular: Positive S1, positive S2. Regular rate and rhythm. Abdomen: Positive bowel sounds in all 4 quadrants. Soft, non-tender, non- distended. : Deferred. Rectal: Deferred. Skin: Warm, dry. Intact. Extremities: 2+ radial pulses bilaterally. No lower extremity edema. Neuro: Awake, alert, oriented x3. No gross motor or sensory deficits. Cranial nerves II through XII intact. Gait not assessed. laboratory and microbiology Laboratory Tests 05/22/24 06:09 05/21/24 07:32 Test 05/22/24 06:09 Range/Units Serum Glucose 120 H 74-106 mg/dL Assessment/Plan Impression: Acute hypoxic respiratory failure Acute exacerbation of asthma Hx of nicotine dependence Marijuana use Methamphetamine use. Obesity Events: Remains on supplemental oxygen, 2 LPM NC Taper O2 as tolerated Continue bronchodilators Continue IV steroids Continue antibiotics Labs and imaging reviewed. Rest of plan as noted below. Plan: Supplemental oxygen Titrate to keep O2 sats above 92%. CXR reviewed, demonstrates no acute opacities. Continue bronchodilators. IV steroids Continue antibiotics Monitor renal function. Monitor electrolytes. Supplement as necessary. Monitor ins and outs. Counseled against marijuana and meth use. Diet and lifestyle modifications for weight reduction Obesity - complicates all care GI prophylaxis- Pepcid DVT prophylaxis. Prognosis: Poor given patient's multiple co-morbidities. Rest of plan per hospitalist and other consultants. Thank you Bj Stoen DNP, for allowing me to participate in this patient's care. Further recommendations will depend on the patient's clinical course. Please do not hesitate to contact me if you have any questions or concerns. This medical document was created using an electronic medical record system with [employer] computerized dictation system. Although these documentations are being carefully reviewed, there may still be some phonetic and typographical changes. The errors are purely typographical, due to imperfection on the software program, and do not reflect any compromise in the patient's medical care. Plan discussed with: Patient, Other (RN) ELINA FERNANDEZ MD May 22, 2024 20:36
[2024-05-23] VITALS (14 sets, daily range): BP systolic 98–131; BP diastolic 52–84; PULSE 52–86; RESP 18–76; TEMP 97.8–98; O2SAT 91–100
[2024-05-23] MEDS ORDERED: LEVO500T91 PO (10:13)
[2024-05-23] MEDS ORDERED: METH4PAK PO ×2 (10:13)
--- NOTE | 2024-05-23 13:19 | DVHPNRES ---
Progress Note Date Seen: May 23, 2024 Resident Creating Document: URBANO GUIDRY RESIDENT Has the PT tested + for MRSA If YES, has PT been informed?: No Medical Necessity Reason Pt with a Central, PICC or Fol: No Subjective Review of Systems A 58 year old male with PMHx asthma and hyperlipidemia presents to the ED due to shortness of breath for 2 days. Patient states he was sleeping, woke up experiencing shortness of breath, cough and describes as a burning sensation in his lungs. Objective vital signs Vital Sign Date Time Temp Pulse Resp B/P (MAP) Pulse Ox O2 Delivery O2 Flow Rate FiO2 05/23/24 10:00 60 18 97/78 05/23/24 09:04 97.8 95 97.8 05/23/24 08:42 Room Air* 0 21 Total Intake and Output 05/22/24 05/22/24 05/23/24 15:00 23:00 07:00 Intake Total 50 ml 0 ml 300 ml Output Total 500 ml Balance 50 ml 0 ml -200 ml medications Current Medications Medications Dose Ordered Sig/Arnold Route Start Time Stop Time Status Last Admin Dose Admin Albuterol 2.5 mg Q4HPRN PRN NEB 05/20/24 19:15 05/23/24 08:42 2.5 MG Ipratropium [place] 0.5 mg Q4HPRN PRN NEB 05/20/24 19:15 05/23/24 08:42 0.5 MG Methylprednisolone Sodium Succinate 40 mg Q8HR IV 05/20/24 22:00 05/23/24 05:12 40 MG Famotidine 20 mg Q12HR IV 05/20/24 22:00 05/22/24 21:58 20 MG Sodium Chloride 10 ml Q8HR IV 05/20/24 22:00 05/23/24 04:56 10 ML Ondansetron HCl 4 mg Q4HP PRN IV 05/20/24 19:15 05/22/24 16:24 4 MG Docusate Sodium 100 mg BIDPRN PRN PO 05/20/24 19:15 05/22/24 18:01 100 MG Acetaminophen 650 mg Q6HP PRN PO 05/20/24 19:15 Morphine Sulfate 2 mg Q4HPRN PRN IV 05/20/24 19:15 05/23/24 09:24 2 MG Nitroglycerin 0.4 mg Q5MINP PRN SL 05/20/24 20:45 Morphine Sulfate 2 mg Q30M PRN IV 05/20/24 20:45 Acetaminophen/ Hydrocodone Bitart 1 tab Q6HPRN PRN PO 05/21/24 01:45 05/23/24 05:16 1 TAB Ibuprofen 800 mg Q6HP PRN PO 05/21/24 05:45 05/22/24 15:07 800 MG Ceftriaxone Sodium 50 ml @ 100 mls/hr DAILY@09 IV 05/21/24 13:15 05/23/24 09:28 100 MLS/HR Azithromycin 250 ml @ 125 mls/hr DAILY IV 05/22/24 10:00 05/23/24 09:28 125 MLS/HR Polyethylene Glycol 17 gm DAILYPRN PRN PO 05/21/24 18:15 Enoxaparin Sodium 100 mg DAILY SC 05/22/24 10:00 UNV Enoxaparin Sodium 100 mg Q12H SC 05/21/24 20:00 05/23/24 09:28 100 MG Budesonide 0.25 mg BID NEB 05/22/24 22:00 05/23/24 08:42 0.25 MG Acetaminophen/ Hydrocodone Bitart 1 tab Q6HP PRN PO 05/23/24 07:45 Examination GEN: Healthy appearing, well-developed, NAD. PSYCH: Good Judgment. AOx3. Normal memory, mood, and affect. HEENT -Head: normocephalic atraumatic, no facial trauma, neck is supple -Eyes: PERRL, EOMI. No discharge or redness; -Ears: External ears are normal. Normal TMs. -Nose: Normal nares. -Mouth and throat: MMM. Normal gums, mucosa, palate,. Good dentition. NECK: Supple, with no masses. CV: RRR, no m/r/g. LUNGS: clear ABD: Soft, ND/NT. No evidence of fluid wave. No pulsatile masses on exam, rebound tenderness, Schneider sign or pain over Mcburney's point. : N/A SKIN: Warm, well perfused. No skin rashes or abnormal lesions. MSK: No deformities or signs of scoliosis. Normal gait. EXT: No clubbing, cyanosis, or edema. NEURO: Ambulating with no limitations. Normal muscle strength and tone. No focal deficits. laboratory and microbiology Laboratory Tests 05/22/24 06:09 05/21/24 07:32 Test 05/22/24 06:09 Range/Units Serum Glucose 120 H 74-106 mg/dL Problem List/Assessment/Plan Problem List/Assessment/Plan #Acute respiratory failure with hypoxia due to asthma exacerbation improved #Asthma exacerbation #Early pneumonia #Hyperlipidemia Cardiac diet AB: ceftriaxone and azithromycin Methylprednisolone 40 mg q8h Breathing treatments Budesonide neb No wheezing today, patient stated that he had a fall yesterday night, x ray of cervical, thoracic and lumbar spine were done not showing fractures or acute abnormalities, possible DC tomorrow Case discussed with Dr Funez Time spent on care 23 min Plan discussed with: Patient, Other (rn) My Orders My Orders Orders - URBANO GUIDRY RESIDENT Procedure Category Date Status Time Budesonide PHA 05/22/24 In Process (Inhalation) 22:00 Hydrocodone-Acet PHA 05/23/24 In Process 7.5/325mg Tab ([place] 07:45 * Ui Developer CONS 05/23/24 Transmitted Consult Cervical Spine 3v XY 05/23/24 Logged 10:33 Spine Thoracic 2view XY 05/23/24 Logged 12:20 Lumbar Spine 3 View XY 05/23/24 Logged 12:20 Date of Service: May 23, 2024 Billing Provider: BALBINA FUNEZ MD Common Visit Codes: [id number] INP/OBS CARE(HIGH) URBANO GUIDRY RESIDENT May 23, 2024 13:18 BALBINA FUNEZ MD May 24, 2024 18:11
--- NOTE | 2024-05-23 13:57 | DVH ---
INDICATION: BACK PAIN TECHNIQUE: 3 views of the cervical spine were obtained. COMPARISON: None FINDINGS: The cervical spine is visualized from C1-C7. There is loss of the normal cervical lordosis which can be positional. No fractures or subluxations are identified. Mild multilevel degenerative changes of the cervical spine with degenerative disc space narrowing and anterior osteophyte formation at C4-C5, C5-C6 and C6-C7. Alignment appears unremarkable. Prevertebral soft tissues are within normal limits. IMPRESSION: 1. No evidence for fracture or subluxation.
--- NOTE | 2024-05-23 13:57 | DVH ---
INDICATION: BACK PAIN TECHNIQUE: 2 views of the lumbar spine were obtained. COMPARISON: None FINDINGS: There are no acute fractures or subluxations. IMPRESSION: No acute fracture or subluxation.
--- NOTE | 2024-05-23 13:58 | DVH ---
INDICATION: BACK PAIN TECHNIQUE: 2 views of the thoracic spine were obtained. COMPARISON: None FINDINGS: There is no evidence of fracture, subluxation and/or dislocation. Mild multilevel degenerative changes of the thoracic spine. The alignment is anatomical. The paravertebral soft tissues were unremarkable. IMPRESSION: 1. Of the visualized spine, there is no evidence for fracture or subluxation.
--- NOTE | 2024-05-23 22:34 | DVHPN2 ---
Progress Note - Dictate Date Seen: May 23, 2024 Has the PT tested + for MRSA If YES, has PT been informed?: No Medical Necessity Reason Pt with a Central, PICC or Fol: No Subjective Patient seen and examined at bedside. Weaned off supplemental oxygen, breathing on room air. Overnight events reviewed. vital signs Vital Sign Date Time Temp Pulse Resp B/P (MAP) Pulse Ox O2 Delivery O2 Flow Rate FiO2 05/23/24 20:30 76 76 93 Room Air* 0 21 05/23/24 17:26 123/81 05/23/24 17:00 97.9 97.9 Total Intake and Output 05/22/24 05/22/24 05/23/24 15:00 23:00 07:00 Intake Total 50 ml 0 ml 300 ml Output Total 500 ml Balance 50 ml 0 ml -200 ml medications Current Medications Medications Dose Ordered Sig/Arnold Route Start Time Stop Time Status Last Admin Dose Admin Albuterol 2.5 mg Q4HPRN PRN NEB 05/20/24 19:15 05/23/24 19:59 2.5 MG Ipratropium [place] 0.5 mg Q4HPRN PRN NEB 05/20/24 19:15 05/23/24 19:59 0.5 MG Methylprednisolone Sodium Succinate 40 mg Q8HR IV 05/20/24 22:00 05/23/24 21:16 40 MG Famotidine 20 mg Q12HR IV 05/20/24 22:00 05/23/24 21:15 20 MG Sodium Chloride 10 ml Q8HR IV 05/20/24 22:00 05/23/24 21:16 10 ML Ondansetron HCl 4 mg Q4HP PRN IV 05/20/24 19:15 05/22/24 16:24 4 MG Docusate Sodium 100 mg BIDPRN PRN PO 05/20/24 19:15 05/22/24 18:01 100 MG Acetaminophen 650 mg Q6HP PRN PO 05/20/24 19:15 Morphine Sulfate 2 mg Q4HPRN PRN IV 05/20/24 19:15 05/23/24 16:52 2 MG Nitroglycerin 0.4 mg Q5MINP PRN SL 05/20/24 20:45 Morphine Sulfate 2 mg Q30M PRN IV 05/20/24 20:45 Acetaminophen/ Hydrocodone Bitart 1 tab Q6HPRN PRN PO 05/21/24 01:45 05/23/24 05:16 1 TAB Ibuprofen 800 mg Q6HP PRN PO 05/21/24 05:45 05/23/24 13:35 800 MG Ceftriaxone Sodium 50 ml @ 100 mls/hr DAILY@09 IV 05/21/24 13:15 05/23/24 09:28 100 MLS/HR Azithromycin 250 ml @ 125 mls/hr DAILY IV 05/22/24 10:00 05/23/24 09:28 125 MLS/HR Polyethylene Glycol 17 gm DAILYPRN PRN PO 05/21/24 18:15 Enoxaparin Sodium 100 mg DAILY SC 05/22/24 10:00 UNV Enoxaparin Sodium 100 mg Q12H SC 05/21/24 20:00 05/23/24 09:28 100 MG Budesonide 0.25 mg BID NEB 05/22/24 22:00 05/23/24 19:59 0.25 MG Acetaminophen/ Hydrocodone Bitart 1 tab Q6HP PRN PO 05/23/24 07:45 objective Gen.: Patient lying in bed in no apparent distress. On room air. Head: Normocephalic, atraumatic. Eyes: EOMI/PERRLA. Ears: Normal hearing. Normal anatomy. Neck/trachea: Trachea midline, supple. Nose: Normal external anatomy. Mouth: Moist mucous membranes. Chest: Decreased air entry bilaterally. No wheezing or rhonchi. Cardiovascular: Positive S1, positive S2. Regular rate and rhythm. Abdomen: Positive bowel sounds in all 4 quadrants. Soft, non-tender, non- distended. : Deferred. Rectal: Deferred. Skin: Warm, dry. Intact. Extremities: 2+ radial pulses bilaterally. No lower extremity edema. Neuro: Awake, alert, oriented x3. No gross motor or sensory deficits. Cranial nerves II through XII intact. Gait not assessed. laboratory and microbiology Laboratory Tests 05/22/24 06:09 05/21/24 07:32 Test 05/22/24 06:09 Range/Units Serum Glucose 120 H 74-106 mg/dL Assessment/Plan Impression: Acute hypoxic respiratory failure Acute exacerbation of asthma Hx of nicotine dependence Marijuana use Methamphetamine use. Obesity Events: Weaned off supplemental oxygen 2 LPM NC, currently breathing on room air. No respiratory distress. Continue bronchodilators Continue IV steroids - transition to PO prednisone on discharge. Continue antibiotics Improved wheezing. Pain control Avoid oversedation Patient is s/p fall. Patient is stable for discharge from the pulmonary standpoint. Labs and imaging reviewed. Rest of plan as noted below. Plan: Supplemental oxygen PRN Titrate to keep O2 sats above 92%. CXR reviewed, demonstrates no acute opacities. Continue bronchodilators. IV steroids Continue antibiotics Monitor renal function. Monitor electrolytes. Supplement as necessary. Monitor ins and outs. Counseled against marijuana and meth use. Diet and lifestyle modifications for weight reduction Obesity - complicates all care GI prophylaxis- Pepcid DVT prophylaxis. Prognosis: Poor given patient's multiple co-morbidities. Rest of plan per hospitalist and other consultants. Thank you Bj Stone DNP, for allowing me to participate in this patient's care. Further recommendations will depend on the patient's clinical course. Please do not hesitate to contact me if you have any questions or concerns. This medical document was created using an electronic medical record system with [employer] computerized dictation system. Although these documentations are being carefully reviewed, there may still be some phonetic and typographical changes. The errors are purely typographical, due to imperfection on the software program, and do not reflect any compromise in the patient's medical care. Plan discussed with: Patient, Other (LENORE Simpson) ELINA FERNANDEZ MD May 23, 2024 22:34
[2024-05-23] MEDS: HYDROcodone-ACET 7.5/325MG TAB PO PRN (22:54)
[2024-05-24 05:00] VITALS: BP 107/64; PULSE 58; RESP 21; TEMP 97.6; O2SAT 94
[2024-05-24 06:03] LABS: Basophils # (auto) 0 10 ^3/uL (0-0.2); Basophils % (auto) 0.1 % (0.0-2.0); Eosinophils # (auto) 0 10 ^3/uL (0-0.8); Hematocrit 44.4 % (41.0-53.0); Hemoglobin 15.4 g/dL (13.5-17.5); Lymphocytes # (auto) 1.4 10 ^3/uL (0.4-5.4); Lymphocytes % (auto) 13.3 % (10.0-50.0); Mean Corpuscular Hemoglobin 30.3 pg (28.0-32.0); Mean Corpuscular Hgb Conc. 34.6 g/dL (32.0-36.0); Mean Corpuscular Volume 87.4 fL (80.0-100.0); Monocytes # (auto) 0.7 10 ^3/uL (0-1.3); Monocytes % (auto) 6.5 % (0.0-12.0); Neutrophils # (auto) 8.5 10 ^3/uL (1.6-8.6); Neutrophils % (auto) 80.1 % (37.0-80.0); Nucleated Red Blood Cells % 0.1 %; Platelet Count (auto) 195 10^3/uL (140-450); Red Blood Cells 5.08 10^6/uL (4.5-5.90); Red Cell Distribution Width 12.5 % (11.8-14.3); White Blood Cell 10.6 10^3/uL (4.4-10.8)
[2024-05-24 06:19] LABS: Alanine Aminotransferase 36 U/L (7-40); Albumin 4.1 g/dL (3.2-4.8); Alkaline Phosphatase 73 U/L (46-116); Anion Gap 8 (5-15); BUN/Creatinine Ratio 23.2 (10.0-20.0); Bilirubin, Total 0.3 mg/dL (0.2-1.0); Blood Urea Nitrogen 22 mg/dL (9-23); Calcium 9.6 mg/dL (8.7-10.4); Carbon Dioxide 27 mmol/L (20-31); Chloride 103 mmol/L (98-107); Potassium 4.8 mmol/L (3.5-5.1); Sodium 138 mmol/L (136-145); Total Protein 6.3 g/dL (5.7-8.2)
[2024-05-24 06:35] LABS: Aspartate Aminotransferase 10 U/L (13-40); Glucose 115 mg/dL (74-106)
[2024-05-24] MEDS: CYCLOBENZAPRINE HCL 10 MG TAB PO ONE (06:59)
[2024-05-24 07:27] VITALS: PULSE 54; RESP 20; O2SAT 95
[2024-05-24 08:00] VITALS: PULSE 56; PULSE 68; RESP 17; O2SAT 95
[2024-05-24 09:00] VITALS: BP 124/73; PULSE 68; RESP 17; TEMP 97.9; O2SAT 95
[2024-05-24] MEDS ORDERED: ACE3T PO (09:54)
[2024-05-24 13:00] VITALS: BP 127/90; PULSE 68; RESP 17; TEMP 98.3; O2SAT 92
--- NOTE | 2024-05-24 16:08 | DVHDSRES ---
Discharge Summary Date of Admission Resident Creating Document: URBANO GUIDRY RESIDENT May 20, 2024 at 20:44 Date of Discharge: May 23, 2024 Admitting Diagnosis asthma exacerbation Labs/Diagnostic Data: Laboratory Results Test 05/24/24 05:11 05/22/24 06:09 05/21/24 07:32 05/20/24 17:18 White Blood Count 10.6 10^3/uL (4.4-10.8) Red Blood Count 5.08 10^6/uL (4.5-5.90) Hemoglobin 15.4 g/dL (13.5-17.5) Hematocrit 44.4 % (41.0-53.0) Mean Corpuscular Volume 87.4 fL (80.0-100.0) Mean Corpuscular Hemoglobin 30.3 pg (28.0-32.0) Mean Corpuscular Hemoglobin Concent 34.6 g/dL (32.0-36.0) Red Cell Distribution Width 12.5 % (11.8-14.3) Platelet Count 195 10^3/uL (140-450) Mean Platelet Volume 7.9 fL (6.9-10.8) Neutrophils (%) (Auto) 80.1 % (37.0-80.0) Lymphocytes (%) (Auto) 13.3 % (10.0-50.0) Monocytes (%) (Auto) 6.5 % (0.0-12.0) Eosinophils (%) (Auto) 0.0 % (0.0-7.0) Basophils (%) (Auto) 0.1 % (0.0-2.0) Neutrophils # (Auto) 8.5 10 ^3/uL (1.6-8.6) Lymphocytes # (Auto) 1.4 10 ^3/uL (0.4-5.4) Monocytes # (Auto) 0.7 10 ^3/uL (0-1.3) Eosinophils # (Auto) 0 10 ^3/uL (0-0.8) Basophils # (Auto) 0 10 ^3/uL (0-0.2) Nucleated Red Blood Cells 0.1 % Sodium Level 138 mmol/L (136-145) Potassium Level 4.8 mmol/L (3.5-5.1) Chloride Level 103 mmol/L (98-107) Carbon Dioxide Level 27 mmol/L (20-31) Anion Gap 8 (5-15) Blood Urea Nitrogen 22 mg/dL (9-23) Creatinine 0.95 mg/dL (0.700-1.30) Glomerular Filtration Rate Calc 94 mL/min (>90) BUN/Creatinine Ratio 23.2 (10.0-20.0) Serum Glucose 115 mg/dL (74-106) Calcium Level 9.6 mg/dL (8.7-10.4) Total Bilirubin 0.3 mg/dL (0.2-1.0) Aspartate Amino Transferase (AST) 10 U/L (13-40) Alanine Aminotransferase (ALT) 36 U/L (7-40) Alkaline Phosphatase 73 U/L (46-116) Total Protein 6.3 g/dL (5.7-8.2) Albumin 4.1 g/dL (3.2-4.8) Hemoglobin A1c 5.3 % A1C (<5.7) Thyroid Stimulating Hormone (TSH) 0.89 uIU/mL (0.55-4.78) Troponin I High Sensitivity < 3 ng/L (</=54) Test 05/20/24 16:40 05/20/24 16:38 05/20/24 14:35 Urine Color Light-yellow (Yellow) Urine Clarity Clear (Clear) Urine pH 6.0 (5.0-9.0) Urine Specific [place] 1.022 (1.001-1.035) Urine Protein Negative (Negative) Urine Ketones Negative (Negative) Urine Blood Negative /uL (Negative) Urine Nitrite Negative (Negative) Urine Bilirubin Negative (Negative) Urine Urobilinogen Normal mg/dL (Negative) Urine Leukocyte Esterase Negative /uL (Negative) Urine RBC 1 /hpf (0 - 3) Urine WBC 2 /hpf (0 - 3) Urine Squamous Epithelial Cells None seen /hpf (<5) Urine Bacteria None seen /hpf (None Seen) Urine Glucose Normal mg/dL (Normal) Influenza Type A Antigen Negative (Negative) Influenza Type B Antigen Negative (Negative) SARS-CoV-2 Antigen (Rapid) Negative (NEGATIVE) B-Type Natriuretic Peptide 12.42 pg/mL (0-100) Other Laboratory Tests 05/24/24 05:11 Brief Hx & Hospital Course: A 58-year-old male with a history of asthma and hyperlipidemia presented to the ED with shortness of breath for two days, described as a burning sensation in the lungs. Symptoms began upon waking. No wheezing was noted on examination. Imaging ruled out acute fractures following a recent fall, and chest X-rays were negative for acute abnormalities. The patient was treated with ceftriaxone, azithromycin, methylprednisolone, and budesonide nebulizations. The patient improved with therapy for acute respiratory failure secondary to asthma exacerbation and early pneumonia. Symptoms of hypoxia resolved, and the patient tolerated breathing treatments well. Discharge was planned with continued asthma management and follow-up for hyperlipidemia. No additional respiratory or cardiovascular complications were noted during hospitalization. Pt complained about lumbar pain, xray didn't show any abnormalities. GEN: Healthy appearing, well-developed, NAD. PSYCH: Good Judgment. AOx3. Normal memory, mood, and affect. HEENT -Head: normocephalic atraumatic, no facial trauma, neck is supple -Eyes: PERRL, EOMI. No discharge or redness; -Ears: External ears are normal. Normal TMs. -Nose: Normal nares. -Mouth and throat: MMM. Normal gums, mucosa, palate,. Good dentition. NECK: Supple, with no masses. CV: RRR, no m/r/g. LUNGS: clear ABD: Soft, ND/NT. No evidence of fluid wave. No pulsatile masses on exam, rebound tenderness, Schneider sign or pain over Mcburney's point. : N/A SKIN: Warm, well perfused. No skin rashes or abnormal lesions. MSK: No deformities or signs of scoliosis. Normal gait. EXT: No clubbing, cyanosis, or edema. NEURO: Ambulating with no limitations. Normal muscle strength and tone. No focal deficit Case discussed with Dr Funez Time spent on care 23 min Consults/Reason for consult pulmonology: asthma exacerbation Operations or Procedures Indication: CP Technique: Single frontal view of the chest was obtained COMPARISON: CHEST PORTABLE on DOS: 11/18/20 FINDINGS: Lines and Tubes: None Lungs: Clear Pleura: No effusion. No pneumothorax. Cardiomediastinal contours: Unremarkable Bones: Unremarkable IMPRESSION: 1. No acute disease. INDICATION: BACK PAIN TECHNIQUE: 3 views of the cervical spine were obtained. COMPARISON: None FINDINGS: The cervical spine is visualized from C1-C7. There is loss of the normal cervical lordosis which can be positional. No fractures or subluxations are identified. Mild multilevel degenerative changes of the cervical spine with degenerative disc space narrowing and anterior osteophyte formation at C4-C5, C5-C6 and C6- C7. Alignment appears unremarkable. Prevertebral soft tissues are within normal limits. IMPRESSION: 1. No evidence for fracture or subluxation. Condition at Discharge: Stable Final Diagnosis/Problems List #Acute respiratory failure with hypoxia due to asthma exacerbation improved #Asthma exacerbation #Early pneumonia #Hyperlipidemia Discharge Disposition: Home Discharge Instruct/Medications Diet: Consistent carbohydrate, Cardiac 2g Na,low cholest Activity: No Restrictions, As Tolerated Follow Up/Referral: [facility] Medications: see prescription Discharge Statement: "Patient was advised to return to the ER or call 911 if any headaches, dizziness, shortness of breath, chest pain, abdominal pain, bleeding, fevers, or worsening of medical condition. Patient was counseled about treatment plan, medications, possible side effects, patientverbalized understanding. All questions were answered to the best of my ability. This discharge took greater then 30 minutes in planning, reviewing documentation, counseling the patient, and discussing with other team members." ASSESSMENT ASSESSMENT Assessment asthma exacerbation Date of Service: May 24, 2024 Billing Provider: BALBINA FUNEZ MD Common Visit Codes: [id number] DISCH DAY >30min URBANO GUIDRY RESIDENT May 24, 2024 16:08 BALBINA FUNEZ MD May 29, 2024 18:25
[2024-05-24] MEDS ORDERED: NALO4SPR3 (17:26)
[2024-05-24] MEDS ORDERED: HYDR-4902 PO (17:26)
--- NOTE | 2024-05-24 22:41 | DVHPN2 ---
Progress Note - Dictate Date Seen: May 24, 2024 Has the PT tested + for MRSA If YES, has PT been informed?: No Medical Necessity Reason Pt with a Central, PICC or Fol: No Subjective Patient seen and examined at bedside. Breathing on room air. Overnight events reviewed. vital signs Vital Sign Date Time Temp Pulse Resp B/P (MAP) Pulse Ox O2 Delivery O2 Flow Rate FiO2 05/24/24 13:00 98.3 68 17 127/90 (102) 92 98.3 05/24/24 08:00 Room Air 05/24/24 08:00 0 21 Total Intake and Output 05/23/24 05/23/24 05/24/24 15:00 23:00 07:00 Intake Total 300 ml 716 ml 550 ml Output Total 300 ml Balance 300 ml 416 ml 550 ml medications Current Medications Medications Dose Ordered Sig/Arnold Route Start Time Stop Time Status Last Admin Dose Admin Enoxaparin Sodium 100 mg DAILY SC 05/22/24 10:00 UNV objective Gen.: Patient lying in bed in no apparent distress. On room air. Head: Normocephalic, atraumatic. Eyes: EOMI/PERRLA. Ears: Normal hearing. Normal anatomy. Neck/trachea: Trachea midline, supple. Nose: Normal external anatomy. Mouth: Moist mucous membranes. Chest: Decreased air entry bilaterally. No wheezing or rhonchi. Cardiovascular: Positive S1, positive S2. Regular rate and rhythm. Abdomen: Positive bowel sounds in all 4 quadrants. Soft, non-tender, non- distended. : Deferred. Rectal: Deferred. Skin: Warm, dry. Intact. Extremities: 2+ radial pulses bilaterally. No lower extremity edema. Neuro: Awake, alert, oriented x3. No gross motor or sensory deficits. Cranial nerves II through XII intact. Gait not assessed. laboratory and microbiology Laboratory Tests 05/24/24 05:11 Test 05/24/24 05:11 Range/Units Serum Glucose 115 H 74-106 mg/dL Assessment/Plan Impression: Acute hypoxic respiratory failure Acute exacerbation of asthma Hx of nicotine dependence Marijuana use Methamphetamine use. Obesity Events: Remains on room air. No respiratory distress. Continue bronchodilators Continue IV steroids - transition to PO prednisone on discharge. Continue antibiotics Improved wheezing. Pain control Avoid oversedation Patient is stable for discharge from the pulmonary standpoint. Labs and imaging reviewed. Rest of plan as noted below. Plan: Supplemental oxygen PRN Titrate to keep O2 sats above 92%. CXR reviewed, demonstrates no acute opacities. Continue bronchodilators. IV steroids Continue antibiotics Monitor renal function. Monitor electrolytes. Supplement as necessary. Monitor ins and outs. Counseled against marijuana and meth use. Diet and lifestyle modifications for weight reduction Obesity - complicates all care GI prophylaxis- Pepcid DVT prophylaxis. Prognosis: Poor given patient's multiple co-morbidities. Rest of plan per hospitalist and other consultants. Thank you Bj Stone DNP, for allowing me to participate in this patient's care. Further recommendations will depend on the patient's clinical course. Please do not hesitate to contact me if you have any questions or concerns. This medical document was created using an electronic medical record system with [employer] dictation system. Although these documentations are being carefully reviewed, there may still be some phonetic and typographical changes. The errors are purely typographical, due to imperfection on the software program, and do not reflect any compromise in the patient's medical care. Plan discussed with: Patient, Other (LENORE Monte) ELINA FERNANDEZ MD May 24, 2024 22:41
== END 2024-05-24 13:03 | disposition home or self-care (01) | DRG 133 ==
LOC: ER 14:28 → TELE 20:44 → TELE-WESTW 05-22 17:22 → WEST WING 05-24 08:18
PROVIDERS: ADMIT Internal Medicine Geriatric Medicine; ATTEND Internal Medicine Geriatric Medicine
DX: J96.01 Acute respiratory failure with hypoxia (principal); J15.69 Pneumonia due to other Gram-negative bacteria; J45.901 Unspecified asthma with (acute) exacerbation; J15.9 Unspecified bacterial pneumonia; J20.9 Acute bronchitis, unspecified; F15.90 Other stimulant use, unspecified, uncomplicated; Z20.822 Contact with and (suspected) exposure to COVID-19; F12.90 Cannabis use, unspecified, uncomplicated; E78.5 Hyperlipidemia, unspecified; E66.9 Obesity, unspecified; Z87.891 Personal history of nicotine dependence; Z82.3 Family history of stroke; Z82.49 Family history of ischemic heart disease and other diseases of the circulatory system; Z68.34 Body mass index [BMI] 34.0-34.9, adult
CPT/HCPCS: 36415; 71045; 72040; 72070; 72100; 80053; 81001; 83036; 83880; 84443; 84484; 85025; 87426; 87804; 93005; 94640; 96374; 96375; 97163; G0378; J2405; J3490